=== PATIENT | female | born 1955 | race Caucasian/White ===

== ENCOUNTER 2019-02-24 07:00 | Outpatient (CLI) | payer MEDICARE, SELFPAY ==
[2019-02-24 13:30] LABS: ALT 16 U/L (14-59); AST 8 U/L (15-37); Albumin 3.8 g/dL (3.4-5.0); Alkaline Phosphatase 153 U/L (46-116); Anion Gap 8.9 mmol/L (3-11); BUN 26 mg/dL (7-18); Bilirubin, Total 0.4 mg/dL (0.2-1.0); CO2 29.1 mmol/L (21.0-32.0); CREATININE 1.02 mg/dL (0.55-1.02); Calcium 8.9 mg/dL (8.5-10.1); Calculated LDL 106 mg/dL; Chloride 102 mmol/L (98-107); Cholesterol 162 mg/dL (50-200); Estimated GFR 54.39 (mL/min/1.73m2); Glucose 94 mg/dL (70-100); HDL Cholesterol 43 mg/dL (40-60); Potassium 4.8 mmol/L (3.5-5.1); Sodium 140 mmol/L (136-145); Triglyceride 68 mg/dL (30-150)
== END 2019-02-24 07:20 ==
PROVIDERS: PCP Family Medicine; Visit Provider Family Medicine
DX: I10 Essential (primary) hypertension (principal)
CPT/HCPCS: 36415; 80053; 80061

== ENCOUNTER 2019-07-21 13:21 | Outpatient (REF) | payer MEDICARE, SELFPAY | END 2019-07-21 13:41 | LOC: LBN 13:21 | PROVIDERS: PCP Family Medicine; Visit Provider Family Medicine | DX: R31.29 Other microscopic hematuria (principal) | CPT/HCPCS: 87077; 87086; 87186 ==

== ENCOUNTER 2019-08-11 11:28 | Outpatient (CLI) | payer MEDICARE, SELFPAY | END 2019-08-11 11:48 | PROVIDERS: PCP Family Medicine; Referring Provider Family Medicine; Visit Provider Student in an Organized Health Care Education/Training Program | DX: M17.11 Unilateral primary osteoarthritis, right knee (principal) | CPT/HCPCS: 99203 ==

== ENCOUNTER 2019-10-24 01:47 | Outpatient (CLI) | payer MEDICARE, SELFPAY ==
[2019-10-24 11:02] LABS: HCT 38.8 % (36.0-46.0); HGB 12.9 g/dL (12.0-15.5); Mean Corp. HGB Concentration 33.2 g/dL (32.0-36.0); Mean Corpuscular Hemoglobin 30.8 pg (27.0-33.0); Mean Corpuscular Volume 92.6 fL (80-95); Mean Platelet Volume 9.1 fL (8.0-11.0); Platelet Count 276 x1000/uL (130-400); RBC 4.19 m/cumm (4.00-5.20)
[2019-10-24 11:39] LABS: Anion Gap 8.6 mmol/L (3-11); BUN 20 mg/dL (7-18); CO2 27.4 mmol/L (21.0-32.0); CREATININE 1.06 mg/dL (0.55-1.02); Calcium 8.7 mg/dL (8.5-10.1); Chloride 102 mmol/L (98-107); Estimated GFR 52.03 (mL/min/1.73m2); Glucose 135 mg/dL (74-106); Potassium 4.5 mmol/L (3.5-5.1); Sodium 138 mmol/L (136-145)
[2019-10-25 14:23] LABS: COVID-19 RT-PCR Result NEGATIVE (Negative)
== END 2019-10-24 02:07 ==
PROVIDERS: PCP Family Medicine; Visit Provider Student in an Organized Health Care Education/Training Program
DX: M25.561 Pain in right knee (principal); M17.11 Unilateral primary osteoarthritis, right knee; Z11.59 Encounter for screening for other viral diseases; Z01.818 Encounter for other preprocedural examination
CPT/HCPCS: 36415; 80048; 85027; U0003

== ENCOUNTER 2019-10-29 08:30 | Observation (INO) | payer MEDICARE, SELFPAY ==
[2019-10-29] VITALS (11 sets, daily range): BP systolic 102–133; BP diastolic 39–69; PULSE 52–65; RESP 11–19; TEMP 35.6–36.7; O2SAT 94–97
[2019-10-29] MEDS: Gabapentin 300 MG CAP PO ×2 (07:53→21:22)
[2019-10-29] MEDS: Celecoxib 200 MG CAP 400 MG PO (07:53)
[2019-10-29] MEDS: Lactated Ringers 1,000 ML 80 ML IV ×2 (07:54→14:12)
[2019-10-29] MEDS: Acetaminophen 500 MG TAB 1000 MG PO ×3 (07:54→19:36)
[2019-10-29] MEDS: ceFAZolin 2 GM/50 ML BAG IVPB (10:20)
--- NOTE | 2019-10-29 10:34 | HPE_ITS ---
Date of service: 10/29/19 Time of Service: 10:35 Assessment and Plan Assessment and plan (1) Primary osteoarthritis of right knee: Status: Acute Assessment and plan: Proceed with right knee replacement. History and physical performed by her primary care provider and was reviewed. She is cleared for surgery. No changes from previously documented plan in the office note. History of Present Illness History of Present Illness Chief Complaint: Right knee DJD Narrative: Rachel is a 64-year-old with known right knee arthritis. She has been seen previously in the office. Please refer to that office note for complete history and physical in regards to her right knee. She is here today for her right knee replacement. Her primary care provider, Dr. Zelaya, performed a history and physical. She has had no changes to her health. She did have her COVID-19 test and has self quarantined from the time of test till today. She denies shortness of breath, chest pain, palpitations. No other acute changes to her health. [facility] Social History Smoking/Tobacco Use Status: Former Tobacco Use Drug use: Never Current gender identity: female Meds Home Medications and Allergies Home Medications Medication Instructions Recorded Confirmed Type acyclovir 200 mg capsule 400 mg PO TID PRN #180 tab-cap 03/25/19 10/23/19 Rx carbidopa 25 mg-levodopa 100 mg 1 - 2 tab PO HS #180 tab-cap 03/26/19 10/29/19 Rx tablet Front Wheeled Walker #1 ea 08/15/19 10/15/19 Rx Front Wheeled Walker #1 ea 10/22/19 Rx Raised Toilet Seat #1 ea 10/22/19 Rx Shower Chair #1 ea 10/22/19 Rx atenolol 75 mg PO HS 10/23/19 10/29/19 History Allergies Allergy/AdvReac Type Severity Reaction Status Date / Time benzonatate AdvReac Unknown Ineffective Unverified 10/29/19 07:38 Results Last Vital Signs Temp 36.6 C 10/29/19 07:43 Pulse 54 L 10/29/19 07:43 Resp 16 10/29/19 07:43 BP 133/52 L 10/29/19 07:43 Pulse Ox 96 10/29/19 07:43
[2019-10-29] MEDS: Bupivacaine 0.25% Pres-Free 30 ML VIAL (11:15)
[2019-10-29] MEDS: Ketorolac 30 MG/ML VIAL (11:17)
[2019-10-29] MEDS: Normal Saline 20 ML VIAL (11:18)
--- NOTE | 2019-10-29 12:43 | W.PM.OP ---
Date of service: 10/29/19 Time of Service: 12:44 Operative Note Operative Note DATE OF PROCEDURE: 10/29/19 PRE-OP DIAGNOSIS: Right knee Osteoarthritis POST-OP DIAGNOSIS: same PROCEDURE: Right total Knee Replacement SURGEON: Tyshawn Bear SALES ENABLEMENT ANALYST: Jenna Nesbitt ANESTHESIA: GETA and regional ESTIMATED BLOOD LOSS: 200 PATHOLOGY: none sent TOURNIQUET TIME: 29 COMPLICATIONS: None Patient was transported to: PACU Patient's condition: stable Implants: 1. Depuy Attune Cruciate Retaining Femoral Component, Size 6 narrow 2. Depuy Attune Rotating Platform Tibial Component, Size 4 3. Depuy Attune 6 x 7 mm CR,RP Poly 4. Depuy Attune Patellar Component, Size 38 mm Indications: I have seen Rachel in clinic for symptoms of knee arthritis, confirmed with radiographic findings. Rachel has exhausted nonoperative methods and was having significant limitations in daily function and desired better function and less pain. I discussed the technical details of a knee replacement. I explained the risks of the procedure to include, but not limited to, bleeding, infection, pain, stiffness, fracture, damage to nerves and vessels, damage to muscles and tendons, loosening, need for repeat procedure, blood clot and cardiopulmonary demise. Despite these risks, Rachel elected to proceed. Findings: There is notable arthritis of the lateral compartment with complete loss of cartilage over the entire lateral femur and notable bony irregularity. 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 Procedure Description: Rachel was greeted in the preoperative holding area where the correct side was identified and marked. The consent was reviewed with the patient and signed. The history and physical was updated. All questions were answered. Preoperative mediacations were administered: Acetaminophen 1000mg, Celebrex 400mg, and Gabapentin 300mg. An adductor canal block was then administered by the anesthesia team in the PACU. Rachel was taken back to the operating room. A spinal anesthestic was then attempted but was unsuccessful. She was then converted to a general anesthetic. The patient was placed into the supine position on the operating room table. A nonsterile tourniquet was placed high onto the leg but only used for cementing. Posts were placed for positioning during the procedure. All bony prominences were well padded. Prophylactic antibiotics in the form of cefazolin were administered. 1g of Tranxemic Acid was given intravenously within 30 minutes of incision. The right leg was then prepped with Chloraprep and draped in a standard fashion with impervious stockinette and extremity drape. A second prep with Chloraprep was performed prior to placing Ioband. A timeout to confirm correct identity, side and site, procedure, allergies, anesthesia, and medical concerns was performed. With the knee in some flexion, a midline incision was made overlying the knee. Full thickness skin flaps were raised once the extensor mechanism was encountered. These were raised medially and laterally. Any bleeding was controlled with electrocautery. Once the extensor mechanism was fully exposed, a medial parapatellar arthrotomy was performed in a flexed position. All bleeding from the arthrotomy and the geniculate arteries was coagulated. A medial subperiosteal peel was performed with electrocautery to the midcoronal plane. The fat pad was removed while keeping the patellar tendon protected. The anterior distal femur synovium was removed for later visualization. The ACL and PCL were resected and the anterior horn of the lateral meniscus was transected. The knee was then flexed with the patella everted. Using a step drill, and based on preoperative templating, the femoral canal was entered. This was done with a step drill without any difficulty. The intramedullary distal femoral cut guide was inserted, set to a 5 degree valgus cut and 9mm cut thickness. There was some hypoplasia of the lateral femoral condyle and any remnant cartilage of the medial femoral condyle was removed for appropriate thickness. The distal femoral cut guide was then held in position and pinned. With the soft tissues protected, the distal cut was performed. This was passed over a few times to ensure a planar cut. I then turned attention to the tibia. The extramedullary guide was placed onto the leg. The distal aspect was slid medial to adjust for position of center of ankle and stay in line with shaft of the tibia. Approximately 3-5 degrees of posterior slope was kept in the proximal cutting guide. The center of the guide was aligned with the PCL. The stylus was used to assess cut thickness. The lateral side was set for a 4 mm cut which corresponded to an 8 mm cut of the medial side. This was then held in position and pinned into place with 2 additional pins and a cross pin for stability. The medial and lateral collateral ligaments were protected and the cut was performed. With this completed, it was assessed and noted to be of appropriate dimensions. The guide was removed. Attachments to the proximal aspect of the lateral tibia were then also resected with electrocautery including some the IT band. A spacer block was inserted and the knee was brought into extension. The 6mm spacer block provided full extension, without hyperextension and with stability of both the medial and lateral collateral ligaments was assessed. The pins from the femur and the tibia were then removed. The distal femur was then sized. The anterior stylus was placed onto the lateral ridge of the anterior femur. This indicated a size 6 narrow femur. The external rotation of the guide was adjusted to 3 degrees to match the epicondylar axis, perpendicular to [place]?s line. The 4-in-1 cutting guide was the placed. The posterior medial femur cut was evaluated and appeared of good thickness. The spacer block was inserted underneath the cutting guide and stability was confirmed in 90 degrees of flexion. An johnson wing was used to confirm appropriate position of the anterior cut to avoid notching. This cutting guide was ensured to be flush on the cut surface and then pinned into place with headed pins. While protecting the soft tissues, quad tendon, and collateral ligaments, the anterior and posterior cuts were performed with a saw. The central two pins were removed and the posterior and anterior chamfers were cut next. The notch-cutting guide was placed. This was pinned to lateralize the femoral component as much as possible while keeping it flush on the cut surface. This was then pinned into position. A reciprocating saw was used to make the small notch cut. Posterior osteophytes were removed with an osteotome from the lateral femur. A trial CR femoral component was then inserted, impacted down to the cut surfaces, and the lug holes were drilled. A provisional trial tibial component was placed and the knee was brought through range of motion. The polyethylene was trialed until there was good flexion and extension with excellent stability to the medial and lateral collaterals. The patella was tracking without thumbs. The tibial cut surface was fully exposed. The medial and lateral menisci were removed. The tibia was then sized as a 4. The tibia had been previously marked during trialing to correspond to the center of the tibial component to help with rotation. The trial was aligned to this sonya, approximately rotated to the medial 1/3rd of the tibial tubercle. The trial was pinned into place. The tibia was prepared with a reamer and a keel punch. The knee was then brought into extension and the patella was measured as 27 mm. Using the patellar clamp and cut guide, this was resected to a flat surface with at least 13mm of thickness remaining. The size 38 patella fit the best. This was oriented and then clamped into position. The lugs were drilled. The trial components were removed. The final components, except for the polyethylene were opened on the back table. The periosteal and capsular tissues, especially posteriorly, around the knee were then systematically injected with a periarticular cocktail consisting of 50cc 0.25% Marcaine, 30mg Ketorolac, 20cc of Exparal and 50cc of injectable saline. The tourniquet was then inflated to 275mmHg. The knee was thoroughly irrigated with a pulse lavage and dried. On the back table, with the implants opened, the cement was mixed. 2 batches of antibiotic laden cement were prepared with vacuum assistance. After the cement was ready it was placed on to the back side of the tibial component. A small amount was placed onto the posterior flange of the femur. Cement was manual pressurized and impregnated into the cut surface of the tibia. The tibial component was then inserted into the cut surface and impacted into position. Excess cement was removed and the component was reimpacted. Again, excess cement was removed and our attention was then turned to the femur. The femoral cut surface was once again dried and cement was manually impacted into the cut surface. The femoral component was lined with the lug holes and impacted. Excess cement was removed. It was ensured to be down against the cut surface. The trial polyethylene was then inserted and the leg was brought out into full extension for the duration of the cement curing process, approximately 15min. Cement was lastly manually impacted into the cut surface of the patella and the patellar button was clamped into position and held. During this process attention was turned to the gutters of the knee and for all interfaces for any excess cement. While the cement was hardening, the knee was irrigated with Irrisept chlorhexadine solution. It was allowed to sit in the knee for 3 minutes. After the cement had finally cured, approximately 15min, the clamp was removed from the patella and the knee was taken through range of motion. A size 7 mm polyethylene component provided the best range of motion and stability with less than 2mm gapping with medial and lateral stress and full extension without significant hyperextension. The patella was tracking with a no-thumbs technique. The trial poly was removed and once again the knee was checked for any loose, excess, or errant cement. The poly component was then inserted into position after cleaning and drying the tibial tray. The capsule was then reapproximated with a No. 1 Vicryl at multiple locations. The capsule was finally closed with a No. 2 Stratafix, barbed suture. The tourniquet was then released and the arthrotomy appeared watertight without significant bleeding. The second dosing of 1g TXA was started. Deep tissues were then reapproximated with 0 Vicryl and 2-0 Vicryl. The skin was closed with a running 3-0 Monocryl in a subcuticular fashion. This was reinforced with skin glue. A Mepilex silver dressing was applied along with a [id number] MARLO wrap. A CryoCuff was applied. Rachel was transferred to the hospital bed without difficulty an suffering no apparent complication. Rachel has a good prognosis. Physical therapy will start today and without restrictions, weight-bearing as tolerated. Aspirin 81mg BID will be used for DVT prophylaxis.
--- NOTE | 2019-10-29 12:48 | W.PM.DS.N ---
Date of service: 10/30/19 Time of Service: 07:11 DS: Diagnosis Discharge Diagnosis (1) Primary osteoarthritis of right knee: Status: Acute Discharge Plan Disposition Patient Disposition: HOME Condition: Good Discharge Details Reason For Visit: (R) KNEE TOTAL ARTHROPLASTY Admit Date/Time: 10/29/19 07:23 Admit Provider: Tyshawn Bear Attending Provider: Tyshawn Bear [facility] Hospital Course: Patient was admitted to the medical/surgical floor following the procedure. The surgery was tolerated well without any notable medical, surgical, or anesthetic complications. Mobilization began postoperatively. She was voiding spontaneously. Vitals were stable. Physical therapy worked with the patient and was cleared for discharge home. No acute medical issues. Pain was controlled on oral regimen. Home Meds and New Rx's Prescriptions: New celecoxib 200 mg capsule 200 mg PO BID PRN (Reason: pain) Qty: 60 RF: 1 aspirin 81 mg tablet,delayed release (DR/EC) 81 mg PO BID Qty: 60 RF: 0 acetaminophen 500 mg tablet 1,000 mg PO Q8H PRN (Reason: pain) Qty: 90 RF: 3 pantoprazole 40 mg tablet,delayed release (DR/EC) 40 mg PO DAILY Qty: 30 RF: 0 gabapentin 300 mg capsule 300 mg PO QHS Qty: 7 RF: 0 oxycodone 5 mg tablet 5 mg PO Q4H Qty: 18 RF: 0 Continued acyclovir 200 mg capsule 400 mg PO TID PRN (Reason: Herpes simplex) Qty: 180 RF: 4 carbidopa-levodopa 25-100 mg tablet 1 - 2 tab PO HS Qty: 180 RF: 1 (DME) Front Wheeled Walker Qty: 1 RF: 0 (DME) Raised Toilet Seat Qty: 1 RF: 0 (DME) Front Wheeled Walker Qty: 1 RF: 0 (DME) Shower Chair Qty: 1 RF: 0 atenolol 50 mg tablet 75 mg PO HS RF: 0 Discharge Instructions Additional Instructions: Dr. Bear?s Total Knee Discharge Instructions Activity: The most important activity is to walk. You should try to take short walks a few times a day. It is important that when resting you work on keeping the knee straight. Avoid putting a pillow behind the knee as this will encourage flexion. Work on range of motion exercises as provided by Physical Therapy and the preoperative booklet. - Start outpatient physical therapy within 2 weeks. - You should wear the AD hose on both legs for 2 weeks. Dressing: Keep the surgical dressing (Mepilex) in place for at least one week. If you went home on the surgical day, you should remove the MARLO wrap on the second day and then apply the DA hose. The dressing may get wet after 3 days but avoid soaking the dressing. If it gets wet, just lightly pat dry. Most patient prefer to cover with ClingWrap or Saran Wrap to keep the dressing dry. After the first week, the dressing may be removed and replaced with light gauze and tape or nothing. Medications: - You should take Tylenol and anti-inflammatory Celebrex as your primary pain control medications - You have been prescribed a stronger pain medication Oxycodone for breakthrough pain, take as needed as prescribed. - You have also been prescribed a stomach acid reduction agent Pantoprozole to help reduce stomach acid and reflux. - You have been prescribed Gabapentin to take at night for help with sleep and nerve related pain and symptoms. - You will be taking Aspirin 81mg twice a day for DVT prevention unless instructed otherwise. - If you have constipation you should take Colace or Miralax (both [id number]). It takes most people 3-4 days to have a bowel movement. Follow-up: 2 weeks. You should also call physical therapy to work on scheduling outpatient therapy sessions which can begin at 2 weeks. If you have any acute concerns or questions, please do not hesitate to contact the office at [phone]. You may contact Dr. Bear with any questions after hours through the hospital at [phone] or on his cell phone at [phone]. Referrals: [facility] [Provider Group] - 11/12/19 Tyshawn Bear MD [ [facility]] - Activity:: Activity as Tolerated Equipment/Supplies:: Walker Diet:: As Tolerated Discharge Orders Discharge Orders: Discharge Order (Routine); Ordered 10/30/19 Ordered By: Tyshawn Bear DS: Summary Status at Discharge Functional status at discharge: uses cane/walker Overall status at discharge: patient is progressing back to baseline Mental Status: mental status grossly normal Speech and Movement: speech and movement normal Mood: congruent mood Affect: normal affect Exam Narrative Exam Narrative: Dressing clean dry and intact. Able to straight leg raise. Range of motion -10-100. Sensation intact to light touch over the deep and superficial peroneal nerve and tibial nerve. Psych Mental Status: mental status grossly normal Speech and Movement: speech and movement normal Mood: congruent mood Affect: normal affect DS: Data Vitals/I&O Vitals and I&O: Vital Signs Temperature 36.6 C 10/29/19 07:43 Pulse 54 L 10/29/19 07:43 Pulse Rhythm Regular 10/29/19 07:43 Respiratory Rate 16 10/29/19 07:43 Respiratory Effort 10/29/19 07:43 Blood Pressure 133/52 L 10/29/19 07:43 Pulse Oximetry 96 10/29/19 07:43 Oxygen Delivery Method Room Air 10/29/19 07:43 Oxygen Flow Rate 0 10/29/19 07:43 Intake & Output 10/28/19 10/29/19 10/29/19 23:59 11:59 23:59 Intake Total 110 / 670 560 / 670 Output Total 200 / 200 Balance 110 / 470 360 / 470 Weight 95.7 kg Intake: IV 110 / 670 560 / 670 Output: Estimated Blood Loss 200 / 200 [facility] Medical History Acid reflux Rx calculus kidney Condyloma vulva age 21 yrs Cryo Tx Essential hypertension (Acute 03/07/13) Herpes simplex type 1 infection Pyloric ulcer associated with Helicobacter pylori (Inactive) Restless legs (Acute) Smoker (Acute) Supraventricular tachycardia (Acute) Surgical History section 1988 Dilation and curettage 1987 post SAB Family History Mother Diabetes Personal history of malignant neoplasm Pituitary Heart disease Stroke Father Alzheimers disease Heart disease Stroke Sister No problems noted. Sister No problems noted. Sister No problems noted. Sister No problems noted. Brother Personal history of malignant neoplasm Stomach Stroke Grandfather Heart disease Grandfather Heart disease Grandmother Heart disease Grandmother No problems noted. Brother No problems noted. Other Hyperlipidemia Social History Smoking/Tobacco Use Status: Former Tobacco Use Drug use: Never Current gender identity: female
--- NOTE | 2019-10-29 15:04 | IN_ITS ---
Date of service: 10/29/19 Time of Service: 16:53 PT Notes Visit Reasons: (R) KNEE TOTAL ARTHROPLASTY Physical Therapy Inpatient Initial Evaluation Date: 10/29/2019 Referring Doctor: Tyshawn Bear MD PT Orders: PT CONSULT: Status post Ortho surgery. Status post right TKA. Precautions: Fall. Standard. WBAT on the right LE. Patient Profile/Admitting Diagnosis: Rachel is a 64-year-old female with primary unilateral osteoarthritis of her right knee and is status post right total knee arthroplasty on postoperative day 0. PMHX: Restless Leg Syndrome Tobacco user Supraventricular tachycardia Essential hypertension Cervical stenosis of spinal canal GERD Hiatal Hernia Hyperlipidemia Idiopathic peripheral neuropathy Social History/Home Situation: Patient lives with her very supportive in a private home with 5 steps to enter that leads into a landing and another step up onto the main entrance. She states that her is building a ramp for her. She is independent with all aspects of ADLs without the need for assistive ambulatory device nor adaptive equipment. Equipment Owned/DME: Standard walker Subjective: Patient reports of being lightheaded but was able to tolerate today's mobility assessment. She reports that the outer side and the backside of her right knee feels stiff. She is hoping that she can go home as soon as she gets medically cleared as she has good supports at home. Objective: General Observation: MARLO wraps on her right knee. TEDS on left leg. IV in the right UE. Alicea catheter in place. Mental Status: Alert and oriented x4 Pain: 1/10 pain on the backside of the right knee ROM: Right Upper Extremity: Shoulder Flexion WFL. Shoulder abduction WFL. Elbow flexion WFL. Wrist flexion WFL. Opening and closing of hand WFL. Left Upper Extremity: Shoulder Flexion WFL. Shoulder abduction WFL. Elbow flexion WFL. Wrist flexion WFL. Opening and closing of hand WFL. Right Lower Extremity: Hip flexion WFL. Hip abduction WFL. Knee flexion allows up to 100 degrees. Knee extension -10 degrees. Ankle dorsiflexion WFL. Ankle plantarflexion WFL. Left Lower Extremity: Hip flexion WFL. Hip abduction WFL. Knee flexion WFL. Ankle dorsiflexion WFL. Ankle plantarflexion WFL. Strength: Right Upper Extremity: Shoulder flexors 5/5. Shoulder abductors 5/5. Elbow flexors 5/5. Elbow extensors 5/5. Nuclear Medicine Pet Ct Technologist strong. Left Upper Extremity: Shoulder flexors 5/5. Shoulder abductors 5/5. Elbow flexors 5/5. Elbow extensors 5/5. Nuclear Medicine Pet Ct Technologist strong. Right Lower Extremity: Hip flexors 5/5. Hip abductors 5/5. Knee flexors 3-/5. Knee extensors 3-/5. Ankle dorsiflexors 5/5. Ankle plantarflexors 5/5. Left Lower Extremity:Hip flexors 5/5. Hip abductors 5/5. Knee flexors 5/5. Knee extensors 5/5. Ankle dorsiflexors 5/5. Ankle plantarflexors 5/5. Sensation: Intact as to pain and pressure on bilateral lower extremities. Bed Mobility/Transfers: Sit to stand contact-guard assist requiring minimal verbal cueing for hand placement, requires use of front-wheeled walker Stand to sit contact-guard assist requiring minimal verbal cueing for hand placement, requires use of front-wheeled walker Bed to chair contact-guard assist requiring minimal verbal cueing for hand placement, requires use of front-wheeled walker Chair to bed contact-guard assist requiring minimal verbal cueing for hand placement, requires use of front-wheeled walker Gait: Patient tolerated level surface ambulation of 120 feet using a front wheeled walker with WBAT on the right LE with contact-guard assist and wheelchair follow. Decreased anabela. Step to gait pattern. Reported some stiffness on the side and the posterior aspect of right knee which subsided towards the end of ambulation activity. Balance: Static Sitting: Normal Dynamic Sitting: Normal Static Standing: Fair Dynamic Standing: Fair Special Tests: Mobility Limitations Standardized Measure [facility]-P[facility] 6 clicks Basic Mobility Inpatient Short Form: Raw Score: 18 CMS Score: 47% deficit Informed Consent/Education: Patient instructed in purpose of PT consult and plan of care. Assessment: Rachel demonstrates need for an assistive ambulatory device for all mobility ADL performance, impairment in balance, difficulty with walking, and unsteadiness of gait resulting from postoperative status. Rachel is a 64-year-old female with primary unilateral osteoarthritis of her right knee and is status post right total knee arthroplasty on postoperative day 0. She has peripheral neuropathy and cervical spinal stenosis which may interfere with mobility ADL retraining. Patient presents with clinical signs and symptoms consistent with current/admitting diagnoses that have resulted to mobility limitations, gait instability, generalized weakness, and impairment of motor control as demonstrated by the following impairment level findings: 1. Decreased strength to right knee major muscle groups 2. Impaired standing balance 3. Impaired activity tolerance 4. Limitation of joint range of motion in right knee Impairments are contributing to the following functional limitations: 1. Dependent bed mobility skills 2. Increased dependence with transfers 3. Inability to safely ambulate without assistive device and physical assistance 4. Increase completion time for mobility ADL performance 5. Increased fall risk 6. Inability to negotiate steps alone safely Patient is assessed as a 26832 moderate complexity based on the following: History: 64-year-old female with impairment level findings, functional limitations, and past medical history as listed above Examination: Demonstrable impairment in strength, balance, and range of motion with underlying impairments and functional limitations as documented above Presentation:Evolving Decision Makin moderate complexity Goals: Goals X 3 days 1. Supine-Sit independent 2. Sit-Supine independent 3. Sit-Stand independent 4. Stand-Sit independent 5. Bed-Chair independent 6. Chair-Bed independent 7. Independent gait on level surface with use of least restrictive device for at least 300 feet without report of pain nor dyspnea 8. Independent stair negotiation while holding onto bilateral rails for at least 10 steps without report of pain nor dyspnea 9. Independent with home exercise program 10. Good static and dynamic standing balance/tolerance Plan of Care/Treatment Plan: 1-2x/day, 7 days/week x 1 week. Initiate Physical Therapy intervention for strengthening, bed mobility, transfers, gait, stairs, balance training, use of assistive device. PT Intervention: Session for today consisted of initial physical therapy evaluation as well as education and training on mobility ADL performance using front wheeled walker. DISCHARGE RECOMMENDATIONS: Home when medically cleared. Needs a front wheeled walker in order to maximize independence at home. May benefit from skilled physical therapy services according to orthopedic surgeon's timeline recommendations. Patient will be educated and trained on home exercise program per TKA exercise protocol in preparation for outpatient physical therapy services. TREATMENT CODE/TIME: 9716 2 x 25 minutes, 70257 x 18 minutes beginning at 15:04 PM. Thank you very much for this referral. Shari Rodriguez PT, DPT, CLT [facility] [place], [place]
[2019-10-29] MEDS: ceFAZolin 1 GM/50 ML BAG IVPB (18:01)
[2019-10-29] MEDS: Aspirin E.C. 81 MG TABEC PO (19:35)
[2019-10-29] MEDS: oxyCODONE 5 MG TAB PO (19:36)
[2019-10-29] MEDS: Celecoxib 200 MG CAP PO (19:36)
[2019-10-29] MEDS: Atenolol 25 MG TAB 75 MG PO (21:22)
[2019-10-29] MEDS: Carbidopa 25/Levodopa 100 TAB PO (21:22)
[2019-10-30] MEDS: ceFAZolin 1 GM/50 ML BAG IVPB (01:51)
[2019-10-30 03:31] VITALS: BP 110/66; PULSE 60; RESP 19; TEMP 36.6; O2SAT 95
[2019-10-30] MEDS: Lactated Ringers 1,000 ML 80 ML IV (05:35)
[2019-10-30] MEDS: Acetaminophen 500 MG TAB 1000 MG PO (07:49)
[2019-10-30] MEDS: Aspirin E.C. 81 MG TABEC PO (07:49)
[2019-10-30] MEDS: Pantoprazole 40 MG TABCR PO (07:50)
[2019-10-30] MEDS: Celecoxib 200 MG CAP PO (07:50)
[2019-10-30 08:30] VITALS: BP 116/67; PULSE 57; RESP 15; TEMP 36.1; O2SAT 96
--- NOTE | 2019-10-30 11:14 | PDOC.CMPRO ---
Care Management Progress Note Request from for FWW coordination. SHAINA provided FWW to Rachel, who was preparing for discharge.
--- NOTE | 2019-10-30 11:55 | PT.INDS ---
Date of service: 10/30/19 Time of Service: 09:00 PT Notes Visit Reasons: (R) KNEE TOTAL ARTHROPLASTY Inpatient Physical Therapy Discharge Summary Dates: 10/30/2019 Dates of Service: 10/29/2019 and 10/30/2019 Referring Doctor: Tyshawn Bear MD PT Orders: PT CONSULT: Status post Ortho surgery. Status post right TKA. Precautions: Fall. Standard. WBAT on the right LE. Patient Profile/Admitting Diagnosis: Rachel is a 64-year-old female with primary unilateral osteoarthritis of her right knee and is status post right total knee arthroplasty on postoperative day 1. PMHX: Restless Leg Syndrome Tobacco user Supraventricular tachycardia Essential hypertension Cervical stenosis of spinal canal GERD Hiatal Hernia Hyperlipidemia Idiopathic peripheral neuropathy Social History/Home Situation: Patient lives with her very supportive in a private home with 5 steps to enter that leads into a landing and another step up onto the main entrance. She states that her is building a ramp for her. She is independent with all aspects of ADLs without the need for assistive ambulatory device nor adaptive equipment. Equipment Owned/DME: Standard walker Subjective: Patient looks forward to going home today. She received a front wheeled walker fitted to her. Objective: General Observation: MARLO wraps on her right knee. TEDS on left leg. Mental Status: Alert and oriented x4 Pain: 1/10 pain on the backside of the right knee ROM: Right Upper Extremity: Shoulder Flexion WFL. Shoulder abduction WFL. Elbow flexion WFL. Wrist flexion WFL. Opening and closing of hand WFL. Left Upper Extremity: Shoulder Flexion WFL. Shoulder abduction WFL. Elbow flexion WFL. Wrist flexion WFL. Opening and closing of hand WFL. Right Lower Extremity: Hip flexion WFL. Hip abduction WFL. Knee flexion allows up to 100 degrees. Knee extension -10 degrees. Ankle dorsiflexion WFL. Ankle plantarflexion WFL. Left Lower Extremity: Hip flexion WFL. Hip abduction WFL. Knee flexion WFL. Ankle dorsiflexion WFL. Ankle plantarflexion WFL. Strength: Right Upper Extremity: Shoulder flexors 5/5. Shoulder abductors 5/5. Elbow flexors 5/5. Elbow extensors 5/5. Supervisor Throwing Department strong. Left Upper Extremity: Shoulder flexors 5/5. Shoulder abductors 5/5. Elbow flexors 5/5. Elbow extensors 5/5. Supervisor Throwing Department strong. Right Lower Extremity: Hip flexors 5/5. Hip abductors 5/5. Knee flexors 3-/5. Knee extensors 3-/5. Ankle dorsiflexors 5/5. Ankle plantarflexors 5/5. Left Lower Extremity:Hip flexors 5/5. Hip abductors 5/5. Knee flexors 5/5. Knee extensors 5/5. Ankle dorsiflexors 5/5. Ankle plantarflexors 5/5. Sensation: Intact as to pain and pressure on bilateral lower extremities. Bed Mobility/Transfers: Sit to stand independent requires use of front-wheeled walker Stand to sit independent requires use of front-wheeled walker Bed to chair independent requires use of front-wheeled walker Chair to bed independent requires use of front-wheeled walker Gait: Patient tolerated level surface ambulation of 260 feet using a front wheeled walker with WBAT on the right LE with supervision assist. Increasing anabela. Step to gait pattern. Reported some stiffness on the side and the posterior aspect of right knee which subsided towards the end of ambulation activity. Patient also tolerated up-and-down twelve 4 inch steps and eight 4 inch steps holding onto one rail with step to gait pattern requiring only supervision. Balance: Static Sitting: Normal Dynamic Sitting: Normal Static Standing: Fair Dynamic Standing: Fair Assessment: Rachel demonstrates need for an assistive ambulatory device for all mobility ADL performance, impairment in balance, difficulty with walking, and unsteadiness of gait resulting from postoperative status. Rachel is a 64-year-old female with primary unilateral osteoarthritis of her right knee and is status post right total knee arthroplasty on postoperative day 1. She has peripheral neuropathy and cervical spinal stenosis which may interfere with mobility ADL retraining. Patient continues to present with clinical signs and symptoms consistent with current/admitting diagnoses that have resulted to mobility limitations, gait instability, generalized weakness, and impairment of motor control as demonstrated by the following impairment level findings: 1. Decreased strength to right knee major muscle groups 2. Impaired standing balance 3. Impaired activity tolerance 4. Limitation of joint range of motion in right knee Impairments are are continuing to contribute to the following functional limitations: 1. Inability to safely ambulate without assistive device and physical assistance 2. Increase completion time for mobility ADL performance 3. Increased fall risk Goals: Goals X 3 days 1. Supine-Sit independent MET 2. Sit-Supine independent MET 3. Sit-Stand independent MET 4. Stand-Sit independent MET 5. Bed-Chair independent MET 6. Chair-Bed independent MET 7. Independent gait on level surface with use of least restrictive device for at least 300 feet without report of pain nor dyspnea NOT MET 8. Independent stair negotiation while holding onto bilateral rails for at least 10 steps without report of pain nor dyspnea NOT MET 9. Independent with home exercise program MET 10. Good static and dynamic standing balance/tolerance NOT MET PT Intervention: Session for today consisted of continued education and training on exercises and on mobility ADL performance using front wheeled walker. DISCHARGE RECOMMENDATIONS: Home when medically cleared. Needs a front wheeled walker in order to maximize independence at home. May benefit from skilled physical therapy services according to orthopedic surgeon's timeline recommendations. Patient will be educated and trained on home exercise program per TKA exercise protocol in preparation for outpatient physical therapy services. TREATMENT CODE/TIME: 66179 x 15 minutes, 40191 x 13 minutes beginning at 9:00 AM. Thank you very much for this referral. Shari Rodriguez PT, DPT, CLT [facility] [place], [place]
== END 2019-10-30 10:45 | disposition home or self-care (01) ==
LOC: PDS 12:50 → MS 23:59 → PDS 10-30 11:32
PROVIDERS: Admitting Provider Student in an Organized Health Care Education/Training Program; PCP Family Medicine; Visit Provider Student in an Organized Health Care Education/Training Program
PROC: 0SRC0J9 Replacement of Right Knee Joint with Synthetic Substitute, Cemented, Open Approach (ICD-10-PCS; CPT 27447; principal; 2019-10-29 10:30)
DX: M17.11 Unilateral primary osteoarthritis, right knee (principal); M25.561 Pain in right knee; Z96.651 Presence of right artificial knee joint; G89.18 Other acute postprocedural pain; I10 Essential (primary) hypertension; K21.9 Gastro-esophageal reflux disease without esophagitis; F17.210 Nicotine dependence, cigarettes, uncomplicated
CPT/HCPCS: 27447; C1776; 76942; 97110; 97162; 97530; NC; G0378; J0690; J1100; J1885; J2001; J2250; J2405; J2704; J3010

== ENCOUNTER 2019-11-17 08:04 | Outpatient (CLI) | payer MEDICARE, SELFPAY ==
--- NOTE | 2019-11-17 07:45 | DI.RAD_ITS ---
EXAM: XR STANDING ALIGNMENT CLINICAL HISTORY: 1st post op R TKA. TECHNIQUE: 2D digital imaging was performed. COMPARISON: CR,DX XR KNEE STANDING ALIGNMENT AP LAT [place] SKYLINE RIGHT from 05/06/2019 FINDINGS: BONES: There is a right total knee replacement which appears in good position. Left knee is well meghana ntained. There is a lucency seen in the medial aspect the left talar dome. This may represent an os teochondral lesion. No bony destructive lesion is seen. JOINTS: No dislocation present. Degenerative changes are seen in the hips bilaterally. SOFT TISSUE: Normal. IMPRESSION: Right TKR. DATA REPOSITORY: RADIATION DOSE DELIVERED:
== END 2019-11-17 08:24 ==
PROVIDERS: PCP Family Medicine; Referring Provider Family Medicine; Visit Provider Student in an Organized Health Care Education/Training Program
DX: Z96.651 Presence of right artificial knee joint (principal); Z47.1 Aftercare following joint replacement surgery; M16.0 Bilateral primary osteoarthritis of hip
CPT/HCPCS: 73560; 77073

== ENCOUNTER → 2019-12-15 08:15 | Outpatient (BNVA) | payer MEDICARE, SELFPAY | PROVIDERS: PCP Family Medicine; Referring Provider Family Medicine; Visit Provider Student in an Organized Health Care Education/Training Program | DX: Z96.651 Presence of right artificial knee joint (principal); Z47.1 Aftercare following joint replacement surgery; I10 Essential (primary) hypertension ==

== ENCOUNTER → 2020-01-26 09:14 | Outpatient (BNVA) | payer MEDICARE, SELFPAY | PROVIDERS: PCP Family Medicine; Referring Provider Family Medicine; Visit Provider Student in an Organized Health Care Education/Training Program | DX: Z47.1 Aftercare following joint replacement surgery (principal); Z96.651 Presence of right artificial knee joint; I10 Essential (primary) hypertension ==

== ENCOUNTER 2020-05-12 00:52 | Outpatient (CLI) | payer MEDICARE, SELFPAY ==
--- NOTE | 2020-05-12 10:23 | DI.US_ITS ---
APPROVED REPORT EXAM: Comprehensive 2D, Doppler, and color-flow Echocardiogram Groundman: Maria Del Carmen Patton RDCS (AE) Indications: Lower ext swelling, Hypertension Other Information Study Quality: Fair Conclusion Normal left ventricular wall thickness and chamber size. Estimated ejection fraction is 60%. There are no segmental wall motion abnormalities Normal right ventricular size and systolic function The left atrium is mildly dilated. The right atrium is normal in size The aortic valve is trileaflet without stenosis or regurgitation Mildly thickened mitral leaflets. There is mild to moderate mitral regurgitation Tricuspid valve is structurally normal with trace regurgitation. Estimated right ventricular systoli c pressure is normal at 30 mmHg The pulmonic valve is structurally normal Wall motion Left Ventricle The left ventricle is normal size. The left ventricular systolic function is normal. The left ventric ular ejection fraction is within the normal range. There is normal left ventricular wall thickness. T here is normal LV segmental wall motion. There is no ventricular septal defect visualized. LVEF is 60 %. Right Ventricle The right ventricle is normal size. The right ventricular systolic function is normal. The RVSP is 30 .3 mmHg. Atria Left atrium is mildly dilated. The right atrium size is normal. The interatrial septum is intact with no evidence for an atrial septal defect. Aortic Valve The aortic valve is normal in structure. Aortic valve is trileaflet. There is no aortic valvular sten osis. No aortic regurgitation is present. Mitral Valve Mildly thickened mitral leaflets No evidence of mitral valve stenosis. Mild to moderate mitral regurg itation. Tricuspid Valve The tricuspid valve is normal in structure. There is no tricuspid valve stenosis. Trace tricuspid reg urgitation. Pulmonic Valve The pulmonary valve is normal in structure. There is no pulmonic valvular stenosis. There is no pulmo teri valvular regurgitation. Great Vessels The aortic root is normal in size. The ascending aorta is normal in size. Aortic arch is normal in ca liber. IVC is normal in size and collapses >50% with inspiration. Pericardium There is no pericardial effusion. 2D Dimensions IVSD d PLAX 1.01 cm F: 0.6-1.0 LV Vol A2C d MOD 91.8 mL LVPW d PLAX 1.05 cm F: 0.6 - 1.0 LV Vol A4C d MOD 92.6 mL LVID d PLAX 4.83 cm F: 3.8 - 5.2 LA vol/ BSA A2C s A-L 32.1 mL/m2 LVDs 3.35 cm F: 2.2 - 3.5 LA vol/ BSA A4C s A-L 34.2 mL/m2 Ao Root d 2.76 cm F: 2.7 - 3.3 LA Vol/ BSA Biplane s A-L 34.0 mL/m2 RA Area A4C 14.38 cm2 LA Area A4C s MOD 21.79 cm2 RA Vol/ BSA A4C s A-L 15.6 mL/m2 LA Area A2C s MOD 21.66 cm2 Ao Asc Diam d 2.93 cm F: 2.3 - 3.1 LV EF A4C MOD 60.2 % LV EF Teichholz 57.0 % LV EF A2C MOD 60.1 % LVEF (Arboleda's) 60.33 % F: 54 - 74 LV EF Biplane MOD 60.3 % LV Volume 70.36 mL F: 46 - 106 SV 57.20 mL LV Volume Index 34.15 mL/m2 F: 29 - 61 SV Index 27.69 mL/m2 LV Vol Biplane MOD 94.8 mL FS 29.90 % M-Mode TAPSE 2.82 cm (M/F) >1.7 LV Diastology MV E' medial 0.087 (>0.07 m/s) E/A Ratio 1.1 LV E/e MED 11.75 (<14) MV E Vmax 1.02 (0.4-1.3 m/s) MV E' lateral 0.079 (>0.1 m/s) MV A Vmax 0.90 (0.4-1.3 m/s) LV E/e LAT 12.85 (<14) MV E/A Ratio 1.13 MV E/E' medial 11.80 MV E/E' lateral 12.88 Aortic Valve LVOT Vmax 0.81 m/s LVOT Mean Savage. 0.53 m/s LVOT Peak Grad 2.6 mmHg LVOT Mean Grad 1.3 mmHg LVOT VTI 0.234 m AoV Vmax 1.36 m/s Velocity Ratio 0.59 AoV Mean Savage. 0.88 m/s AoV Peak Grad 7.4 mmHg AoV Mean Grad 3.6 mmHg AoV VTI 0.319 m Mitral Valve MV DT 203 (160-240 msec) MR Vmax 4.43 m/s MV PHT 59 msec MR VTI 1.816 m MV Area PHT 3.74 cm2 MR Peak Grad 78.6 mmHg MV VTI 0.410 m MR Mean Grad 66.1 mmHg MV VTI Annulus 0.433 m MR PISA Radius 0.40 cm MR EROA 0.08 cm2 MR Aliasing Velocity 0.35 m/s MR PISA 0.98 cm2 Pulmonary Valve PV Vmax 0.84 (0.5-1.5 m/s) RVOT Peak Gr. 2.72 mmHg PV Peak Grad 2.9 mmHg RVOT Mean Gr. 1.25 mmHg PV Mean Grad 1.6 mmHg RVOT VTI 0.156 m PV VTI 0.251 m RVOT Vmax 0.82 m/s Tricuspid Valve TR Peak Grad 27.2 mmHg TR Vmax 2.61 m/s RA Pressure 3.00 mmHg RVSP (TR) 30.3 mmHg
== END 2020-05-12 01:12 ==
PROVIDERS: PCP Nurse Practitioner Family; Visit Provider Nurse Practitioner Family
DX: I10 Essential (primary) hypertension (principal); R60.0 Localized edema; I34.0 Nonrheumatic mitral (valve) insufficiency
CPT/HCPCS: 93306

== ENCOUNTER 2020-11-15 11:33 | Outpatient (CLI) | payer MEDICARE, SELFPAY ==
--- NOTE | 2020-11-15 09:30 | DI.RAD_ITS ---
Exam(s) XR KNEE RT 2V AP,LAT EXAM: XR KNEE RT 2V AP,LAT CLINICAL HISTORY: ANNUAL F/U. TECHNIQUE: 2D digital imaging was performed. COMPARISON: CR,DX XR KNEE STANDING ALIGNMENT AP LAT [place] SKYLINE RIGHT from 05/06/2019 CR XR STANDING ALIGNMENT from 11/17/2019 CR XR KNEE RT 1V from 11/17/2019 FINDINGS: There are stable postsurgical changes of a right total knee replacement. There is no evidence of bautista dware failure. The bones are intact and normally mineralized. No significant joint effusion. Soft tissues are unremarkable. IMPRESSION: Stable right TKA. DATA REPOSITORY: RADIATION DOSE DELIVERED:
== END 2020-11-15 11:34 | disposition home or self-care (01) ==
LOC: DIORS 11:34
PROVIDERS: PCP Nurse Practitioner Family; Referring Provider Nurse Practitioner Family; Visit Provider Student in an Organized Health Care Education/Training Program
DX: Z47.1 Aftercare following joint replacement surgery (principal); Z96.651 Presence of right artificial knee joint; M70.51 Other bursitis of knee, right knee
CPT/HCPCS: 99213; 73560

== ENCOUNTER → 2021-02-02 08:11 | Outpatient (BNVA) | payer MEDICARE, SELFPAY | PROVIDERS: PCP Family Medicine; Referring Provider Nurse Practitioner Family; Visit Provider Psychiatry & Neurology Neurology | DX: G60.9 Hereditary and idiopathic neuropathy, unspecified (principal); M48.02 Spinal stenosis, cervical region; R29.2 Abnormal reflex; G25.81 Restless legs syndrome | CPT/HCPCS: 99215; G2212 ==

== ENCOUNTER 2022-02-27 09:14 | Outpatient (CLI) | payer MEDICARE, SELFPAY ==
--- NOTE | 2022-02-27 08:15 | DI.RAD_ITS ---
Exam(s) XR KNEE LT 3V AP,LAT,AURY EXAM: XR KNEE LT 3V AP,LAT,AURY CLINICAL HISTORY: pain. TECHNIQUE: 2D digital imaging was performed. Three views. COMPARISON: CR XR KNEE RT 2V AP,LAT from 02/27/2022 FINDINGS: BONES: No acute fracture is present. No bony destructive lesion is seen. Enthesophyte at quadriceps insertion on the patella. JOINTS: Mild periarticular spurring throughout. Joint spaces maintained. The knee is normally align ed. No joint effusion is seen. SOFT TISSUE: Normal. IMPRESSION: Mild degenerative changes. DATA REPOSITORY: RADIATION DOSE DELIVERED:
--- NOTE | 2022-02-27 08:15 | DI.RAD_ITS ---
Exam(s) XR KNEE RT 2V AP,LAT EXAM: XR KNEE RT 2V AP,LAT INDICATION: pain s/p rt TKA. COMPARISON: CR XR KNEE RT 2V AP,LAT from 11/15/2020 TECHNIQUE: 2D digital imaging was performed. Two views. FINDINGS: There has been no change in the total knee prosthesis or appearance of the surrounding bone. DATA REPOSITORY: RADIATION DOSE DELIVERED:
== END 2022-02-27 09:15 | disposition home or self-care (01) ==
LOC: DIORS 09:15
PROVIDERS: PCP Nurse Practitioner Family; Referring Provider Nurse Practitioner Family; Visit Provider Physician Assistant Surgical
DX: M25.562 Pain in left knee (principal); Z96.651 Presence of right artificial knee joint; M48.02 Spinal stenosis, cervical region; M70.51 Other bursitis of knee, right knee
CPT/HCPCS: 73562; 99214; 73560

== ENCOUNTER → 2022-03-21 01:56 | Outpatient (CLI) | payer MEDICARE, SELFPAY ==
--- NOTE | 2022-03-21 07:15 | DI.MRI_ITS ---
Exam(s) MR CERVICAL SPINE WO EXAM: MR CERVICAL SPINE WO CLINICAL HISTORY: neck pain, cervical stenosis, m48.02 TECHNIQUE: Multiplanar multisequence MRI of the cervical spine was performed without intravenous con trast. COMPARISON: MR MRI - CERVICAL SPINE WO CONT from 12/21/2015 FINDINGS: BONES: Vertebral body heights are maintained. Intervertebral disc spaces are normal. Alignment is nor mal. Bone marrow signal intensity is within normal limits. CERVICAL CORD: Craniovertebral junction is unremarkable. The cervical cord is normal size and signal intensity. SOFT TISSUES: Unremarkable. C2-3: No disc herniation or bulge is identified. No significant central spinal canal or neural forami nal stenosis. C3-4: No disc herniation or bulge is identified. No significant central spinal canal or neural forami nal stenosis C4-5: There is prominence of the osteophyte disc complex causing mild narrowing of the central spinal canal. Uncovertebral joint hypertrophy is seen bilaterally, right greater than left resulting in bi lateral neural foraminal stenosis. C5-6: There is prominence of the osteophyte disc complex causing mild central spinal canal stenosis. Uncovertebral joint hypertrophy is present causing moderately severe bilateral neural foraminal sten osis. C6-7: There is mild prominence of the osteophyte disc complex. Mild degenerative changes of the left uncovertebral joint are present. This results in mild narrowing of the left neural foramen. No sig nificant central spinal canal or right neural foraminal stenosis. C7-T1: No disc herniation or bulge is identified. No significant central spinal canal or neural dejon inal stenosis IMPRESSION: Multilevel degenerative changes in the cervical spine resulting in central spinal canal neural forami nal stenosis as described above. The findings are most marked at C4-5, C5-6 and C6-C7. DATA REPOSITORY:
== END ==
PROVIDERS: PCP Nurse Practitioner Family; Visit Provider Student in an Organized Health Care Education/Training Program
DX: M47.812 Spondylosis without myelopathy or radiculopathy, cervical region (principal)
CPT/HCPCS: 72141

== ENCOUNTER → 2022-08-28 14:39 | Outpatient (BNVA) | payer MEDICARE, SELFPAY | PROVIDERS: PCP Nurse Practitioner Family; Referring Provider Nurse Practitioner Family; Visit Provider Student in an Organized Health Care Education/Training Program | DX: M65.351 Trigger finger, right little finger (principal) | CPT/HCPCS: 99213 ==

== ENCOUNTER 2022-09-26 06:14 | Day surgery (SDC) | payer MEDICARE, SELFPAY ==
[2022-09-26 06:15] VITALS: BP 120/62; PULSE 58; RESP 18; TEMP 36.6; O2SAT 96
--- NOTE | 2022-09-26 07:09 | PDOC.DSDIS_ITS ---
Date of service: 09/26/22 Time of Service: 07:10 Discharge Plan Disposition Patient Disposition: Home Condition: Good Discharge Details Reason For Visit: Right little finger trigger finger Attending Provider: Tyshawn Bear Primary Care Provider: Yaron Chung Home Meds and New Rx's Prescriptions: Continued ketoconazole 2 % cream 1 applic topical BID Qty: 30 0RF Rx Instructions: Apply to affected areas of feet BID. No refills. acyclovir 200 mg capsule 400 mg PO TID PRN (Reason: Herpes simplex) Qty: 180 4RF atenolol 50 mg tablet 75 mg PO HS Qty: 135 4RF Rx Instructions: take one and a half tablet daily carbidopa-levodopa 25-100 mg tablet 1 - 2 tab PO HS Qty: 180 1RF Rx Instructions: NOT SENT Discharge Instructions Stand Alone Forms: Chema Allan Finger Release Referrals: Tyshawn Bear MD [ [facility] STAFF PHYSICIAN] - Activity:: Elevate Remove Dressings/Wound Care:: 48 hours Shower/Bathe:: 48 hours Diet:: As Tolerated Discharge Orders Discharge Orders: Discharge Order (Routine); Ordered 09/26/22 Ordered By: Angela Brooks
[2022-09-26] MEDS: Sodium Bicarbonate 50 MEQ/50 ML VIAL (07:34)
[2022-09-26] MEDS: Lidocaine 1% Pres-Free W/EPI 1/200,000 10 ML VIAL (07:34)
[2022-09-26 07:50] VITALS: BP 148/78; PULSE 59; RESP 18; TEMP 36.3; O2SAT 95
--- NOTE | 2022-09-26 15:57 | W.PM.OP ---
Date of service: 09/26/22 Time of Service: 07:45 Operative Note Operative Note DATE OF PROCEDURE: 09/26/22 PRE-OP DIAGNOSIS: Right Little Finger Trigger Finger POST-OP DIAGNOSIS: same PROCEDURE: Trigger Finger Release - Right Little Finger SURGEON: Tyshawn Bear ANESTHESIA TYPE: Local By Surgeon Refer to Anesthesia Record PATHOLOGY: none sent COMPLICATIONS: None Patient was transported to: same day Patient's condition: stable Indications: I have seen Rachel in clinic for symptoms of a trigger finger. The catching, clicking, locking, and pain limited function. The diagnosis of trigger finger was evident. The symptoms had not responded to conservative measures. I discussed trigger finger release with the patient. I reviewed the risks of the procedure to include, but not limited to, bleeding, infection, pain, stiffness, incomplete release, damage to nerves or vessels, continued catching, recurrence. Despite these risks, the patient elected to proceed. Findings: There was a tightened A1 maureen which was released. The flexor tendons were inspected and the patient was able to move the finger without any catching, clicking, or locking. Procedure Description: Rachel was greeted in the preoperative holding area where the correct side was identified and marked. The consent was reviewed with the patient and signed. All questions were answered. Rachel was taken back to the operating room. The patient was placed into the supine position on the operating room table with the right arm on an arm board. All bony prominences were well padded. No prophylactic antibiotics were administered since this was a clean, elective hand surgical case. The right arm was then prepped with Chloraprep and draped in a standard fashion with stockinette and extremity drape. A timeout to confirm correct identity, side and site, procedure, allergies, anesthesia, and medical concerns was performed. The surgical site was marked as a longitudinal incision directly over the A1 maureen of the involved digit. This was confirmed with palpation during finger flexion. This area, overlying the metacarpal head, was then anesthetized with 1% Lidocaine. The patient tolerated this well and once the anesthetic had setup, the procedure began. A longitudinal incision was made through skin only, approximately 1cm. The deep tissues were dissected bluntly. Once the A1 maureen and flexor tendons were identified the soft tissue including neurovascular structures were retracted medially and laterally. There were no crossing structures over the A1 maureen. The proximal edge of the maureen was identified and the maureen was incised with tenotomy scissors. There was a release of the tendons once this was fully released. The tendons were then removed from the wound and inspected. Excess synovium was resected. The tendons were then returned and the patient was asked to move the finger into deep flexion and back to extension. There was no recreation of the pre-operative symptoms. The hand was then once more inspected for any A0 maureen or area of possible constriction. The wound was then irrigated and the skin was closed with a 4-0 Nylon. This was dressed with gauze and a Conform dressing. The patient tolerated the procedure well and was returned to the Same Day Surgery area in a stable condition suffering no known complication.
== END 2022-09-26 08:07 | disposition home or self-care (01) ==
PROVIDERS: PCP Nurse Practitioner Family; Visit Provider Student in an Organized Health Care Education/Training Program
PROC: (CPT 26055; principal; 2022-09-26 07:30)
DX: M65.351 Trigger finger, right little finger (principal)
CPT/HCPCS: 26055

== ENCOUNTER → 2022-10-05 07:55 | Outpatient (BNVA) | payer MEDICARE, SELFPAY | PROVIDERS: PCP Nurse Practitioner Family; Referring Provider Nurse Practitioner Family | DX: Z47.89 Encounter for other orthopedic aftercare (principal); M79.641 Pain in right hand ==

== ENCOUNTER → 2023-08-14 08:54 | Outpatient (BNVA) | payer MEDICARE, SELFPAY | PROVIDERS: PCP Nurse Practitioner Family; Referring Provider Nurse Practitioner Family; Visit Provider Podiatrist | DX: G60.9 Hereditary and idiopathic neuropathy, unspecified (principal); E53.8 Deficiency of other specified B group vitamins; G62.9 Polyneuropathy, unspecified; L60.3 Nail dystrophy; B35.1 Tinea unguium; L84 Corns and callosities; I87.2 Venous insufficiency (chronic) (peripheral) | CPT/HCPCS: 11056; 11721 ==

== ENCOUNTER 2023-10-16 15:35 | Outpatient (CLI) | payer MEDICARE, SELFPAY ==
--- NOTE | 2023-10-16 09:43 | DI.RAD_ITS ---
Exam(s) XR SHOULDER RT COMPLETE 2+V EXAM: XR SHOULDER RT COMPLETE 2+V CLINICAL HISTORY: evaluate right shoulder. TECHNIQUE: 2D digital imaging was performed of the right shoulder. Three images were obtained. Gra mami and axillary views were obtained. COMPARISON: No exams were available for comparison FINDINGS: BONES: No acute fracture is present. No bony destructive lesion is seen. JOINTS: No dislocation present. There are mild degenerative changes seen at the glenohumeral joint. The acromioclavicular joint is well maintained. There is a laterally downward sloping acromion. Thi s may compromise the rotator cuff. SOFT TISSUE: The visualized lungs are clear. IMPRESSION: Degenerative changes of the right shoulder as described above. DATA REPOSITORY: RADIATION DOSE DELIVERED:
== END 2023-10-16 15:36 | disposition home or self-care (01) ==
LOC: DIORS 15:38
PROVIDERS: PCP Nurse Practitioner Family; Visit Provider Student in an Organized Health Care Education/Training Program
DX: M75.21 Bicipital tendinitis, right shoulder; M48.02 Spinal stenosis, cervical region; G60.9 Hereditary and idiopathic neuropathy, unspecified
CPT/HCPCS: 99213; 73030

== ENCOUNTER → 2023-12-26 13:15 | Outpatient (BNVA) | payer MEDICARE, SELFPAY | PROVIDERS: PCP Family Medicine; Referring Provider Family Medicine; Visit Provider Podiatrist | DX: L84 Corns and callosities (principal); G60.9 Hereditary and idiopathic neuropathy, unspecified; E53.8 Deficiency of other specified B group vitamins; G62.9 Polyneuropathy, unspecified; L60.3 Nail dystrophy; B35.1 Tinea unguium; I87.2 Venous insufficiency (chronic) (peripheral); M79.671 Pain in right foot; M79.672 Pain in left foot | CPT/HCPCS: 11055; 11056 ==

== ENCOUNTER → 2025-02-18 08:39 | Outpatient (BNVA) | payer MEDICARE, SELFPAY | PROVIDERS: PCP Family Medicine; Referring Provider Family Medicine; Visit Provider Student in an Organized Health Care Education/Training Program | DX: M48.02 Spinal stenosis, cervical region (principal); M75.21 Bicipital tendinitis, right shoulder | CPT/HCPCS: 99213 ==

== ENCOUNTER 2025-04-30 04:30 | Inpatient (IN) | payer MEDICARE, SELFPAY ==
[2025-04-30] VITALS (106 sets, daily range): BP systolic 104–192; BP diastolic 37–123; PULSE 53–87; RESP 14–28; TEMP 36.1–38.5; O2SAT 87–100; BMI 28.8
--- NOTE | 2025-04-30 05:13 | W.ED.GENAD ---
Discharge Plan Discharge Details Chief Complaint: Abd Prob Clinical Impression: Acute flank pain Primary Care Provider: Edwin Bonilla ED Provider: Elvia Pino Home Meds and New Rx's Prescriptions: No Action cyanocobalamin (vitamin B-12) 1,000 mcg capsule 1,000 mcg PO DAILY cholecalciferol (vitamin D3) 75 mcg (3,000 unit) tablet 5,000 unit PO DAILY magnesium 250 mg tablet 250 mg PO DAILY acyclovir 200 mg capsule 400 mg PO TID PRN (Reason: Herpes simplex) Qty: 180 4RF atenolol 50 mg tablet 75 mg PO HS Qty: 135 4RF Rx Instructions: take one and a half tablet daily carbidopa-levodopa 25-100 mg tablet 1 - 2 tab PO HS Qty: 180 1RF Rx Instructions: NOT SENT HPI General Mode of arrival: ambulatory. Date/Time Provider Initiated Documentation: 04/30/25 04:59. Limitations to Documentation: no limitations. Information obtained by: patient. HPI Narrative: 70yo F with hx CKD, COPD, presenting for left flank pain. Woke up several hours ago with severe left sided back/flank pain radiating to her left mid-abdomen with associated nausea. No vomiting. Feels similar to a kidney stone she had in the past in her 20's and she has had no other stones since then. Pain has been constant and worsening since onset. Has not taken anything at home for pain; concerned about NSAIDs due to her CKD. No alleviating or aggravating factors. No numbness or weakness in her upper extremities. The pain is not pleuritic. No dysuria or hematuria. She is otherwise in her usual state of health with no fevers, chills, rash, abdominal pain, or other concerns. Related Data Home Medications ?Medication ?Instructions ?Recorded ?Confirmed acyclovir 200 mg capsule 400 mg (2 x 200 mg) PO TID PRN 03/25/19 04/30/25 Herpes simplex #180 tab-caps atenolol 50 mg tablet 75 mg (1.5 x 50 mg) PO HS #135 tabs 12/22/19 04/30/25 carbidopa 25 mg-levodopa 100 mg 1 - 2 tab (1 - 2 x 25-100 mg) PO 09/17/20 04/30/25 tablet HS #180 tab-caps cholecalciferol (vitamin D3) 75 5,000 unit PO DAILY 05/19/24 04/30/25 mcg (3,000 unit) tablet cyanocobalamin (vitamin B-12) 1,000 mcg PO DAILY 05/19/24 04/30/25 1,000 mcg capsule magnesium 250 mg tablet 250 mg PO DAILY 02/18/25 04/30/25 Previous Rx's ?Medication ?Instructions ?Recorded acyclovir 200 mg capsule 400 mg (2 x 200 mg) PO TID PRN 03/25/19 Herpes simplex #180 tab-caps atenolol 50 mg tablet 75 mg (1.5 x 50 mg) PO HS #135 tabs 12/22/19 carbidopa 25 mg-levodopa 100 mg 1 - 2 tab (1 - 2 x 25-100 mg) PO 09/17/20 tablet HS #180 tab-caps Allergies Allergy/AdvReac Type Severity Reaction Status Date / Time Penicillins AdvReac Mild Other (See Verified 04/30/25 05:13 Comment) benzonatate AdvReac Unknown Ineffective Verified 04/30/25 05:13 General Stated Complaint: Abd Prob SIMI: 3 Review of Systems Narrative: see HPI Exam Narrative Exam Narrative: General: Alert, nontoxic, appears to be in discomfort. Head: Normocephalic, atraumatic Neck: Trachea midline, ?Neck supple. ENT: ?MMM.? No oropharygeal lesions or exudate. Cardiac: ?RRR, no murmurs appreciated. Equal radial pulses. Resp: No respiratory distress. CTAB. Abd: ?Soft, non-distended, nontender. : ?No suprapubic tenderness. No CVA tenderness. Extremities: ?No deformities.? No peripheral edema. Neurologic: GCS 15. ? Moves all extremities freely against gravity Course Vital Signs Vital signs: Vital Signs Temperature 36.1 C L 04/30/25 04:30 Pulse 56 L 04/30/25 04:30 Respiratory Rate 18 04/30/25 04:30 Blood Pressure 192/64 H 04/30/25 04:30 Pulse Oximetry 97 04/30/25 04:30 Temperature 36.1 C L 04/30/25 04:30 Temperature Source Tympanic 04/30/25 04:30 Pulse 56 L 04/30/25 04:30 Respiratory Rate 18 04/30/25 04:30 Blood Pressure 192/64 H 04/30/25 04:30 Pulse Oximetry 97 04/30/25 04:30 Oxygen Delivery Method Room Air 04/30/25 04:30 Oxygen Flow Rate 0 04/30/25 04:30 Pain Level 10 04/30/25 04:30 Medical Decision Making 70yo F with hx CKD, COPD, presenting for severe back/flank pain radiating to her left mid abdomen that woke her from sleep. Hypertensive on arrival 190's/60's. No abdominal tenderness on exam; equal radial pulse and BP equal bilateral UE. No chest pain or shortness of breath. Very distant history of kidney stones which patient report felt similar. Unable to void on arrival. Broad differential in this 69 year old woman (nephrolithiasis certainly possible) but with acute back/flank pain and hypertension must also consider aortic dissection/pulmonary embolism though less likely. Will risk stratify with d-dimer. Will treat symptoms initially with tylenol and zofran for symptoms, IVF to facilitate urine (caution in setting of HTN though may be 2/t pain). -Repeat BP iimproved to 150's/40's after pain/nausea medication. -EKG SR, appropriate intervals, no ST segment or T wave abnormalities to suggest occlusive DC. -Labs reviewed as below, CBC reassuring with no leukocytosis or anemia, CMP with Cr 1.7 (pt reports new diagnosis of CKD) and no actionable abnormalities, Mg normal, lactate normal. Dimer elevated; will get CTA to evalaute for dissection (as well as other intrabdominal/thoracic pathology including pulmonary embolism, nephrolithiasis, bowel pathology). Risk/benefit of contrast infusion in this pt with CKD favors imaging given differential including life threatening pathology. Will be signed out to oncoming physician pending CTA as well as UA. Disposition pending results and clinical course. Lab Data Lab results reviewed: Yes I reviewed the patient's lab results. PFSH All Active Problems (Updated 04/30/25 @ 06:19 by Elvia Pino MD) Acute flank pain (Acute) Tendonitis of long head of biceps brachii of right shoulder (Acute) Venous insufficiency (Acute) Pre-ulcerative calluses (Acute) Onychomycosis (Acute) Nail dystrophy (Acute) Pain, foot (Acute) Corns and callosities (Acute) Left knee pain (Acute) COPD (chronic obstructive pulmonary disease) (Chronic) Obesity (Chronic) Asymptomatic menopausal state (Acute) Polyneuropathy (Acute) Statin intolerance (Acute) Elevated hemoglobin A1c (Acute) Vitamin B 12 deficiency (Acute) Pes anserinus bursitis of right knee (Acute) Bilateral lower extremity edema (Acute) Status post total knee replacement, right (Acute 10/29/19) Actinic keratosis (Acute) Babinski reflex (Acute 12/08/15) Cervical stenosis of spinal canal (Acute 01/11/16) Gastroesophageal reflux disease (Acute) Hiatal hernia (Acute) Hyperlipidemia (Acute) Idiopathic peripheral neuropathy (Acute 01/11/16) Restless legs (Acute) Smoker (Acute) Quit 6 years ago. Supraventricular tachycardia (Acute) Medical History Melanoma Type 2 diabetes mellitus with diabetic polyneuropathy, without long-term current use of insulin Nephrolithiasis Pyloric ulcer associated with Helicobacter pylori Herpes simplex type 1 infection Condyloma vulva age 21 yrs Cryo Tx Surgical History Trigger finger, right little finger S/P Release: 09/26/2022 S/P cataract extraction section 1988 Dilation and curettage 1987 post SAB Family History Mother Diabetes Personal history of malignant neoplasm Pituitary Heart disease Stroke Father Alzheimers disease Heart disease Stroke Brother Personal history of malignant neoplasm Stomach Stroke Grandfather Heart disease Grandfather Heart disease Grandmother Heart disease Other Hyperlipidemia Social History Smoking/Tobacco Use Status: Former Tobacco Use Tobacco: How many years used: 40 Smoking risk assessment performed?: Yes Alcohol Intake: current Alcohol Intake frequency: holidays/special occasions only Alcohol type: wine Drug use: Never Substance use type: does not use Caregiver/Support person: No Household members: spouse Housing: house Number of Children: 1 Communication Needs: None Do you need help understanding health information?: Never current occupation: Retail Pets and animals: No Current gender identity: decline to answer What type of physical activity do you participate in: none Seatbelt use: never Drive intox or ride w/intox minibus driver: No Additional Social history: Youngest of 7 kids, though estranged from her siblings. Her father was a GP.
[2025-04-30] MEDS: Normal Saline 1,000 ML 1000 ML IV (05:16)
[2025-04-30] MEDS: ACETAMINOPHEN 1,000 MG/100 ML BAG 400 MG IVPB (05:16)
[2025-04-30 05:21] LABS: Abs Immature Grans 0.02 10^3/uL (0.0-0.06); HCT 40.8 % (36.0-46.0); HGB 13.6 g/dL (11.2-15.7); Immature Grans % 0.2 %; MCH 30.4 pg (27.0-33.0); MCHC 33.3 % (32.0-36.0); MCV 91 fL (80-95); MPV 9.4 fL (8.0-11.0); Platelet Count 228 10^3/uL (130-400); RBC 4.48 10^6/uL (3.93-5.22); RDW 12.4 % (11.7-14.6); RDW-SD 40.8 fL; WBC 9.17 10^3/uL (4.4-10.8)
[2025-04-30] MEDS: Ondansetron 4 MG/2 ML VIAL IVP (05:22)
[2025-04-30 05:38] LABS: Magnesium 2.3 mg/dL (1.6-2.6)
[2025-04-30 05:42] LABS: ALT < 7 U/L (10-49); AST 20 U/L (<34); Albumin 4.4 g/dL (3.4-5.0); Alkaline Phosphatase 96 U/L (46-116); Anion Gap 9 mmol/L (3-11); BUN 26 mg/dL (9-23); Bilirubin, Total 0.70 mg/dL (0.2-1.2); CO2 27.0 mmol/L (20.0-31.0); Calcium 9.4 mg/dL (8.3-10.6); Chloride 103 mmol/L (98-107); Glucose 142 mg/dL (74-106); Potassium 4.3 mmol/L (3.5-5.1); Sodium 139 mmol/L (136-145); Total Protein 7.8 g/dL (5.7-8.2)
[2025-04-30 05:47] LABS: D-Dimer 855 ng/mlFEU (<500)
--- NOTE | 2025-04-30 06:00 | RT.EKG_ITS ---
APPROVED REPORT Exam: Resting ECG Reason for Exam: hypertension Patient Location: E HR:57 bpm ECG Measurements Heart Rate 57 AXIS IN 80 P 60 QRSd 89 QRS 57 QT 467 T 55 QTc 456 Conclusion Sinus bradycardia...rate< 60 Atrial premature complex...SV complex w/ short R-R interval no ST segment or T wave abnormalities to suggest occlusive NM
--- NOTE | 2025-04-30 06:56 | DI.CT_ITS ---
Exam(s) CT THORAX ABD/PEL CTA EXAM: CT THORAX ABD/PEL CTA CLINICAL HISTORY: eval dissection. TECHNIQUE: Imaging Protocol: Axial CT angiography was performed with multi- slice acquisition and multi-planar and/or 3D reconstructions. CONTRAST MATERIAL: Intravenous: Omnipaque 350 Contrast volume:75 ml Oral: no COMPARISON: No exams were available for comparison FINDINGS: CHEST: Pulmonary Arteries: Mildly prominent. No evidence of filling defect to suggest pulmonary emboli. Tracheobronchial tree: Patent where visualized. Mediastinum and Radha: No dominant adenopathy or fluid collection. Pulmonary parenchyma: No consolidation or dominant measurable mass. Mild emphysematous changes. Biapical scarring. Pleura: No effusion or pneumothorax. Heart: The heart is mildly dilated. Mild coronary artery calcifications are seen. Aorta: Thoracic aorta non-dilated. Mild calcifications at the aortic annulus. Irregular atherosclerotic plaque at the lower descending aorta. Bones: Degenerative disc changes. No compression fractures. Tubes, Catheters, and Lines: None ABDOMEN AND PELVIS: Abdomen: Celiac axis/mesenteric arteries: Focal stenosis approximally 50 percent at the origins of the celiac axis. Mild stenosis at the proximal superior mesenteric artery. The VERONIKA is unremarkable. Renal Arteries: Severe stenosis at the origin of the right renal artery. Moderate stenosis of the proximal left renal artery. There is a single renal artery perfusing each kidney. Aorta: Irregular calcific plaque causing [id number] stenosis, greater distally.. No aneurysm or dissection. Pelvis: Iliac Arteries: Approximately 50 percent stenosis in right common iliac artery. Common Femoral Arteries: No evidence of occlusion. Calcific plaque causing [id number] stenosis. ABDOMEN: Liver: Normal density. No measurable mass. Portal, Superior Mesenteric, and Splenic Veins: Unremarkable. Gallbladder and Biliary Tract: No radiodense calculus or dilation. Pancreas: Normal density, no abnormal calcifications or inflammatory process. Spleen: Normal. Adrenals: No masses seen. Kidneys: Mild right renal atrophy. Enlargement of the left kidney. Mild left hydronephrosis secondary to a 12 millimeter stone at the ureteropelvic junction. Mild delay in nephrogram. There is urothelial enhancement consistent with inflammation versus infection. Mild perinephric stranding. Additional upper pole calculus measuring 17 millimeters. Other smaller stones in the left kidney. No suspicious masses seen. Cysts are noted. Bowel: No obstruction or bowel wall thickening. Appendix is unremarkable. Diverticulosis. Peritoneal Cavity: No ascites, collection or mesenteric inflammatory response. Lymph Nodes: Within normal limits. Bones: Unremarkable degenerative changes. Soft Tissues: Unremarkable. PELVIS: Bladder: Sy empty. Reproductive Organs: Unremarkable as visualized. Lymph Nodes: Within normal limits. Bones: Advanced degenerative changes of the hips, left greater than right. IMPRESSION: Chest: No evidence of dissection or pulmonary emboli. Atherosclerotic changes of the descending thoracic aorta. No aneurysm. Abdomen pelvis: Significant atherosclerotic changes causing severe stenosis of the left right renal artery and moderate stenosis of the left renal artery. Also significant stenosis of the celiac axis. 12 millimeter calculus at the left ureteropelvic junction causing moderate left hydronephrosis. There is urothelial enhancement which could be secondary to infection versus inflammation. The preliminary [facility] report was reviewed. RADIATION DOSE DELIVERED: 1,221.49mGy.cm Total DLP DATA REPOSITORY: All CT scans at this facility are submitted to the National Radiology Data Registry (NRDR) Dose Index Registry (DIR) with the [employer] (ACR). RADIATION OPTIMIZATION: All CT scans at this facility use at least one of these dose optimization techniques: automated exposure control; mA and/or kV adjustment per patient size (includes targeted exams where dose is matched to clinical indication); or iterative reconstruction.
[2025-04-30 07:02] LABS: Glucose 100 mg/dL (Negative)
[2025-04-30 07:13] LABS: WBC >50 HPF (0-5)
[2025-04-30 07:14] LABS: C & S Indicated? Yes
[2025-04-30] MEDS: Omnipaque 350 MG/ML 500 ML BTL-Imaging package IJ (07:32)
[2025-04-30] MEDS: Normal Saline - Diluent 50 ML VIAL IJ (07:33)
[2025-04-30] MEDS: cefTRIAXone 1 GM/50 ML BAG IVPB (07:39)
[2025-04-30] MEDS: Lactated Ringers 500 ML IV (07:57)
--- NOTE | 2025-04-30 08:16 | DI.[facility]_ITS ---
PROCEDURE INFORMATION: Exam: CTA Chest With Contrast CTA Abdomen and Pelvis With Contrast Exam date and time: 04/30/2025 7:17 AM Age: 70 years old Clinical indication: Screening exam; Other screening; Purpose: Eval dissection TECHNIQUE: Imaging protocol: Computed tomographic angiography of the chest with contrast. Exam focused on the arteries. Computed tomographic angiography of the abdomen and pelvis with contrast. Exam focused on the arteries. 3D rendering (Not supervised by radiologist): MIP and/or 3D reconstructed images were created by the technologist. COMPARISON: No relevant prior studies for comparison. FINDINGS: VASCULATURE: Pulmonary arteries: Normal caliber main pulmonary artery. No central pulmonary arterial filling defects. Aorta: Normal in caliber, without aneurysm or dissection. Scattered mild to moderate fibrofatty and calcified atherosclerotic plaque throughout the thoracic and abdominal aorta. Celiac and mesenteric arteries: No occlusion. Short segment, approximately 60% stenoses in the proximal celiac and superior mesenteric arteries and at their origins due to fibrofatty and calcified atherosclerotic plaque. Renal arteries: No occlusion. Severe stenosis in the proximal right renal artery and at its origin due to fibrofatty and calcified atherosclerotic plaque. Right iliac arteries: No occlusion or significant stenosis. Approximately 50% stenosis in the right common iliac artery due to fibrofatty and calcified atherosclerotic plaque Left iliac arteries: No occlusion or significant stenosis. CHEST: Lungs: Mild biapical paraseptal emphysema with biapical pleural-parenchymal scarring. Mild upper lobe predominant centrilobular emphysema. No consolidation or mass. Pleural spaces: No pneumothorax. No pleural effusion. Heart: Mild cardiomegaly. Aortic annular calcifications and mild coronary artery calcifications. No pericardial effusion. ABDOMEN AND PELVIS: Liver: Morphologic changes of cirrhosis in the liver, with hepatic steatosis. Gallbladder and biliary ducts: No calcified gallstones. No intrahepatic or extrahepatic biliary ductal dilation. Pancreas: Mildly atrophic. No acute abnormality. Spleen: Normal in size. Adrenal glands: Unremarkable. Kidneys and ureters: There is mild left hydronephrosis with an elongated, approximately 1.2 cm x 0.5 cm x 0.6 cm obstructing calculus at the ureteropelvic junction (see series 14, images 181-187 and series 10, images 91-95). There is mural thickening and enhancement in the left renal pelvis and calyces, which could be inflammatory or infectious in etiology. The left kidney appears edematous, with mild perinephric fat stranding. Additional calculi are present in the left kidney, the largest an irregular calculus in the upper pole that measures up to 1.7 cm. The right renal collecting system and right ureter are normal in caliber. There are simple-appearing cortical cysts in both kidneys, as well as incidental hypoattenuating cortical foci which measure less than 1 cm and are too small to characterize. Stomach and bowel: The stomach is nondilated. The small and large bowel are normal in caliber. There are scattered diverticula in the descending and sigmoid colon without evidence of diverticulitis. Appendix: A nondilated appendix is identified. Intraperitoneal space: No ascites, fluid collection, or pneumoperitoneum. Urinary bladder: Completely collapsed/decompressed. Reproductive: Unremarkable as visualized. Lymph nodes: No pathologically enlarged lymph nodes. Bones/joints: Degenerative changes. No suspicious osseous lesions. Soft tissues: Unremarkable. IMPRESSION: 1. No aortic dissection or aneurysm. 2. Mild left hydronephrosis secondary to an obstructing 1.2 cm x 0.5 cm x 0.6 cm obstructing calculus at the ureteropelvic junction. 3. Mural thickening and enhancement in the left renal pelvis and calyces could be inflammatory/reactive (related to the recently passed calculus), though a left upper urinary tract infection could also have this appearance (in the appropriate clinical setting). 4. Several additional incidental/nonemergent findings are discussed in the body of the report. Dictated and Authenticated by: Minerva Albert MD. Orderin Odette Gan MD
--- NOTE | 2025-04-30 09:05 | W.EDPROG ---
Date of service: 04/30/25 Time of Service: 09:06 Medical Decision Making 918 -- Care was signed out by Dr. Pino, please see her documentation regarding initial ED presentation and course. Plan at signout was to follow-up on CT to rule out pulmonary embolism versus renal stone versus other. CTA of the chest abdomen pelvis interpreted by radiology: No aortic dissection or aneurysm. Mild left hydronephrosis secondary to an obstructing 1.2 cm x 0.5 cm x 0.6 cm obstructing calculus at the UPJ. Mural thickening and enhancement in the left renal pelvis and calyces could be inflammatory/reactive (related to the recently passed calculus) though a left upper urinary tract infection could also have this appearance (in the appropriate clinical setting). Several additional incidental nonemergent findings noted including scattered diverticula in the descending and sigmoid colon without evidence of diverticulitis. Morphologic changes of cirrhosis in the liver, with hepatic steatosis. Mild cardiomegaly. Aortic annular calcifications and mild coronary artery calcifications. Mild biapical paraseptal emphysema with biapical pleural-parenchymal scarring. Mild upper lobe predominant central emphysema. Scattered mild to moderate fibrofatty and calcified atherosclerotic plaque throughout the thoracic and abdominal aorta. Approximately 60% short segment stenosis in proximal celiac and superior mesenteric arteries and at their origins due to fibrofatty and calcified atherosclerotic plaque. Severe stenosis in the proximal right renal artery and at its origin due to fibrofatty and calcified atherosclerotic plaque. Approximately 50% stenosis in the right common iliac artery due to fibrofatty and calcified atherosclerotic plaque. Labs reviewed and concern for urinary tract infection. This raises potential for septic stone. Creatinine is elevated at 1.7 with GFR 29. I have initiated treatment with ceftriaxone IV. Patient received 1 L of IV fluid prior to signout. I will give an additional 500 mL liter crystalloid bolus post CT. -- I spoke with Dr. Snyder, discussed ED presentation course, he will plan to place stent today. -- I spoke with the hospitalist on-call, Dr. Whelan, discussed ED presentation and course, he will admit the patient. Lab Data Lab results reviewed: Yes I reviewed the patient's lab results. Labs: 04/30/25 06:17 Urine - Reflex from Ua Urine Culture - Pending Laboratory Tests Range/Units 04/30/25 04/30/25 05:05 06:17 WBC (4.4-10.8) 10^3/uL 9.17 RBC (3.93-5.22) 10^6/uL 4.48 Hgb (11.2-15.7) g/dL 13.6 Hct (36.0-46.0) % 40.8 MCV (80-95) fL 91 MCH (27.0-33.0) pg 30.4 MCHC (32.0-36.0) % 33.3 RDW (11.7-14.6) % 12.4 Plt Count (130-400) 10^3/uL 228 MPV (8.0-11.0) fL 9.4 Immature Gran % % 0.2 Neutrophils % % 82.6 Lymphocytes % % 10.6 Monocytes % % 4.8 Eosinophils % % 1.1 Basophils % % 0.7 Nucleated RBC % (0.0-0.3) % 0.0 Absolute Neutrophils (1.2-6.7) 10^3/uL 7.58 H Absolute Lymphocytes (1.2-3.4) 10^3/uL 0.97 L Absolute Monocytes (0.1-0.8) 10^3/uL 0.44 Absolute Eosinophils (0.0-0.7) 10^3/uL 0.10 Absolute Basophils (0.0-0.2) 10^3/uL 0.06 D-Dimer (<500) ng/mlFEU 855 H VBG Lactate (<or=2.0) mmol/L 0.9 Sodium (136-145) mmol/L 139 Potassium (3.5-5.1) mmol/L 4.3 Chloride (98-107) mmol/L 103 Carbon Dioxide (20.0-31.0) mmol/L 27.0 Anion Gap (3-11) mmol/L 9 BUN (9-23) mg/dL 26 H Creatinine (0.55-1.02) mg/dL 1.7 H Est GFR (CKD-EPI 2020) (mL/min/1.73m2) 29.22 Glucose (74-106) mg/dL 142 H Calcium (8.3-10.6) mg/dL 9.4 Magnesium (1.6-2.6) mg/dL 2.3 Total Bilirubin (0.2-1.2) mg/dL 0.70 AST (<34) U/L 20 ALT (10-49) U/L < 7 L Alkaline Phosphatase (46-116) U/L 96 Total Protein (5.7-8.2) g/dL 7.8 Albumin (3.4-5.0) g/dL 4.4 Urine Color (Yellow) Yellow Urine Clarity (Clear) Cloudy Urine pH (5-8) 5.5 Ur Specific [place] (1.005-1.025) 1.025 Urine Protein (Neg-Trace) mg/dL 100 H Urine Ketones (Negative) mg/dL 15 H Urine Blood (Negative) Moderate H Urine Nitrite (Negative) Positive H Urine Bilirubin (Negative) Negative Urine Urobilinogen (Up to 0.2) mg/dL 0.2 Ur Leukocyte Esterase (Negative) Moderate H Urine RBC (0-2) HPF 10-20 H Urine WBC (0-5) HPF >50 H Ur Epithelial Cells (Negative) HPF Few Urine Crystals (Negative) HPF Negative Urine Bacteria (Negative) HPF Few Urine Casts (Negative) LPF 0-2 Hyaline Urine Mucus (Negative) Trace Ur Culture Indicated? Yes Urine Glucose (Negative) mg/dL 100 H Quality:SDOH Health Related Social Needs: Health related social needs education Discharge Plan Disposition Patient Disposition: Admit to [facility] Condition: Serious Discharge Details Clinical Impression: Calculus of left ureter, Complicated urinary tract infection Admit Date/Time: 04/30/25 10:10 Admit Provider: Baldomero Whelan Attending Provider: Baldomero Whelan Primary Care Provider: Edwin Bonilla ED Provider: Vini Melendez Discharge Data Discharge Date/Time-TO BE ENTERED AT DEPARTURE: 04/30/25 10:40
--- NOTE | 2025-04-30 09:34 | W.UROLOGYCON ---
Date of service: 04/30/25 Time of Service: 10:33 Assessment and Plan Assessment and plan (1) Nephrolithiasis: (2) Hydronephrosis of left kidney: Status: Acute (3) UTI (urinary tract infection): Status: Acute Assessment and plan: With the presence of infected urine and hydronephrosis, we recommend emergent/urgent placement of a left ureteral stent. We do not attempt to treat the patient's stones while patients are acutely infected. We will make arrangements to place a stent today. Once her infection has resolved, we can consider more definitive therapy. We could offer her ureteroscopy and holmium laser lithotripsy but given her stone burden, she would likely need staged procedures. Her other option would be percutaneous nephrolithotomy which would require treatment at a tertiary care center that has access to interventional radiology. These options will be discussed after her antibiotic treatment is completed History of Present Illness History of Present Illness Chief Complaint: Left hydronephrosis Narrative: This is a 70-year-old woman has a distant history of urolithiasis. She recalls having passed a stone when she was in her 20s. She has never required surgical treatment for stone disease. She presented to the emergency department with abdominal pain. At the time of her presentation, she was not certain that her pain was related to stone disease. She was evaluated with a CT scan and was found to have left hydronephrosis, an obstructing stone at the left ureteropelvic junction and infected urine. She is not having fevers and chills. She does have nausea. She tells me that she recently was diagnosed with a renal insufficiency and diabetes for the first time. No additional renal imaging has been accomplished. She is unsure of her previous stones chemical composition. She has no known history of gout or hyperparathyroidism. Review of Systems Narrative: No fevers or chills No vision change or dysphasia Diabetes. No thyroid dysfunction COPD. No cough or hemoptysis No chest pain or palpitations GERD. No hepatitis, ulcers, jaundice No seizures or strokes No bleeding disorders or anemia Arthralgia. No gout PFSH All Active Problems (Updated 04/30/25 @ 10:13 by Baldomero Whelan MD) Left ureteral stone (Acute) UTI (urinary tract infection) (Acute) Hydronephrosis of left kidney (Acute) Acute flank pain (Acute) Tendonitis of long head of biceps brachii of right shoulder (Acute) Venous insufficiency (Acute) Pre-ulcerative calluses (Acute) Onychomycosis (Acute) Nail dystrophy (Acute) Pain, foot (Acute) Corns and callosities (Acute) Left knee pain (Acute) COPD (chronic obstructive pulmonary disease) (Chronic) Obesity (Chronic) Asymptomatic menopausal state (Acute) Polyneuropathy (Acute) Statin intolerance (Acute) Elevated hemoglobin A1c (Acute) Vitamin B 12 deficiency (Acute) Pes anserinus bursitis of right knee (Acute) Bilateral lower extremity edema (Acute) Status post total knee replacement, right (Acute 10/29/19) Actinic keratosis (Acute) Babinski reflex (Acute 12/08/15) Cervical stenosis of spinal canal (Acute 01/11/16) Gastroesophageal reflux disease (Acute) Hiatal hernia (Acute) Hyperlipidemia (Acute) Idiopathic peripheral neuropathy (Acute 01/11/16) Restless legs (Acute) Smoker (Acute) Quit 6 years ago. Supraventricular tachycardia (Acute) Medical History Melanoma Type 2 diabetes mellitus with diabetic polyneuropathy, without long-term current use of insulin Nephrolithiasis Pyloric ulcer associated with Helicobacter pylori Herpes simplex type 1 infection Condyloma vulva age 21 yrs Cryo Tx Surgical History Trigger finger, right little finger S/P Release: 09/26/2022 S/P cataract extraction section 1988 Dilation and curettage 1987 post SAB Family History Mother Diabetes Personal history of malignant neoplasm Pituitary Heart disease Stroke Father Alzheimers disease Heart disease Stroke Brother Personal history of malignant neoplasm Stomach Stroke Grandfather Heart disease Grandfather Heart disease Grandmother Heart disease Other Hyperlipidemia Social History Smoking/Tobacco Use Status: Former Tobacco Use Tobacco: How many years used: 40 Smoking risk assessment performed?: Yes Alcohol Intake: current Alcohol Intake frequency: holidays/special occasions only Alcohol type: wine Drug use: Never Substance use type: does not use Caregiver/Support person: No Household members: spouse Housing: house Number of Children: 1 Communication Needs: None Do you need help understanding health information?: Never current occupation: Retail Pets and animals: No Current gender identity: decline to answer What type of physical activity do you participate in: none Seatbelt use: never Drive intox or ride w/intox trencher driver: No Additional Social history: Youngest of 7 kids, though estranged from her siblings. Her father was a GP. Exam Narrative Exam Narrative: She appears quite uncomfortable Her vital signs are documented elsewhere in the chart Her chest wall motion is normal. The lungs are clear Cardiac exam shows a regular rate and rhythm Her abdomen is obese but soft with no peritoneal signs She is awake and alert Results Last Vital Signs Temp 36.1 C L 04/30/25 04:30 Pulse 60 04/30/25 06:50 Resp 18 04/30/25 05:52 BP 149/52 H 04/30/25 07:01 Pulse Ox 94 04/30/25 07:01 Labs 04/30/25 05:05 04/30/25 05:05 Labs: Laboratory Results - last 24 hr 04/30/25 04/30/25 05:05 06:17 WBC 9.17 RBC 4.48 Hgb 13.6 Hct 40.8 MCV 91 MCH 30.4 MCHC 33.3 RDW 12.4 Plt Count 228 MPV 9.4 Immature Gran % 0.2 Neutrophils % 82.6 Lymphocytes % 10.6 Monocytes % 4.8 Eosinophils % 1.1 Basophils % 0.7 Nucleated RBC % 0.0 Absolute Neutrophils 7.58 H Absolute Lymphocytes 0.97 L Absolute Monocytes 0.44 Absolute Eosinophils 0.10 Absolute Basophils 0.06 D-Dimer 855 H VBG Lactate 0.9 Sodium 139 Potassium 4.3 Chloride 103 Carbon Dioxide 27.0 Anion Gap 9 BUN 26 H Creatinine 1.7 H Est GFR (CKD-EPI 2020) 29.22 Glucose 142 H Calcium 9.4 Magnesium 2.3 Total Bilirubin 0.70 AST 20 ALT < 7 L Alkaline Phosphatase 96 Total Protein 7.8 Albumin 4.4 Urine Color Yellow Urine Clarity Cloudy Urine pH 5.5 Ur Specific [place] 1.025 Urine Protein 100 H Urine Ketones 15 H Urine Blood Moderate H Urine Nitrite Positive H Urine Bilirubin Negative Urine Urobilinogen 0.2 Ur Leukocyte Esterase Moderate H Urine RBC 10-20 H Urine WBC >50 H Ur Epithelial Cells Few Urine Crystals Negative Urine Bacteria Few Urine Casts 0-2 Hyaline Urine Mucus Trace Ur Culture Indicated? Yes Urine Glucose 100 H Imaging Imaging Studies: I reviewed her CT scan on the PACS system. She has left hydronephrosis related to a left UPJ stone. She does have rather large stone burden up in the kidney as well.
--- NOTE | 2025-04-30 09:37 | W.ANESPRE ---
General Info Date of Service Date Performed: 04/30/25 Height: 5 ft 8.11 in Weight: 86.183 kg Body Mass Index (BMI): 28.8 Meds Allergies and Home Medications Allergies Allergy/AdvReac Type Severity Reaction Status Date / Time Penicillins AdvReac Mild Other (See Verified 04/30/25 05:13 Comment) benzonatate AdvReac Unknown Ineffective Verified 04/30/25 05:13 Home Medication ?Medication ?Instructions ?Recorded acyclovir 200 mg capsule 400 mg (2 x 200 mg) PO TID PRN 03/25/19 Herpes simplex #180 tab-caps atenolol 50 mg tablet 75 mg (1.5 x 50 mg) PO HS #135 tabs 12/22/19 carbidopa 25 mg-levodopa 100 mg 1 - 2 tab (1 - 2 x 25-100 mg) PO 09/17/20 tablet HS #180 tab-caps cholecalciferol (vitamin D3) 75 5,000 unit PO DAILY 05/19/24 mcg (3,000 unit) tablet cyanocobalamin (vitamin B-12) 1,000 mcg PO DAILY 05/19/24 1,000 mcg capsule magnesium 250 mg tablet 250 mg PO DAILY 02/18/25 Current Visit Medications: Current Medications Generic Name Dose Route Start Last Admin Trade Name Freq PRN Reason Stop Dose Admin Iohexol 500 ml 04/30/25 07:45 04/30/25 07:32 Omnipaque 350 Mg/Ml 500 Ml Btl-Imaging Package IJ 05/30/25 23:59 75 ml DIRECTED ERIC Administration Sodium Chloride 50 ml 04/30/25 07:45 04/30/25 07:33 Normal Saline - Diluent 50 Ml Vial IJ 75 ml DIRECTED ERIC Administration PFSH Active Problems Active Problems: Problem Status Onset Code UTI (urinary tract infection) Acute N39.0 Hydronephrosis of left kidney Acute N13.30 Acute flank pain Acute R10.A0 Tendonitis of long head of biceps brachii of right shoulder Acute M75.21 Venous insufficiency Acute I87.2 Pre-ulcerative calluses Acute L84 Onychomycosis Acute B35.1 Nail dystrophy Acute L60.3 Pain, foot Acute M79.673 Corns and callosities Acute L84 Left knee pain Acute M25.562 COPD (chronic obstructive pulmonary disease) Chronic J44.9 Obesity Chronic E66.9 Asymptomatic menopausal state Acute Z78.0 Polyneuropathy Acute G62.9 Statin intolerance Acute Z78.9 Elevated hemoglobin A1c Acute R73.09 Vitamin B 12 deficiency Acute E53.8 Pes anserinus bursitis of right knee Acute M70.51 Bilateral lower extremity edema Acute R60.0 Status post total knee replacement, right Acute 10/29/19 Z96.651 Actinic keratosis Acute L57.0 Babinski reflex Acute 12/08/15 R29.2 Cervical stenosis of spinal canal Acute 01/11/16 M48.02 Gastroesophageal reflux disease Acute K21.9 Hiatal hernia Acute K44.9 Hyperlipidemia Acute E78.5 Idiopathic peripheral neuropathy Acute 01/11/16 G60.9 Restless legs Acute G25.81 Smoker Acute F17.200 Supraventricular tachycardia Acute I47.1 Medical History Medical History Melanoma Type 2 diabetes mellitus with diabetic polyneuropathy, without long-term current use of insulin Nephrolithiasis Pyloric ulcer associated with Helicobacter pylori Herpes simplex type 1 infection Condyloma vulva age 21 yrs Cryo Tx Surgical History Surgical History Trigger finger, right little finger S/P Release: 09/26/2022 S/P cataract extraction section 1988 Dilation and curettage 1987 post SAB Tobacco Smoking/Tobacco Use Status: Former Tobacco Use Passive smoking exposure: Yes Alcohol Alcohol Intake: current Alcohol intake frequency: holidays/special occasions only Alcohol type: wine Substance Use Substance use: Never Substance use type: does not use Vital Signs and Lab Results Vital Signs Most Recent Vital Signs in EMR: Most Recent Vital Signs Temp Pulse Resp BP Pulse Ox 36.1 C L 60 18 149/52 H 94 04/30/25 04:30 04/30/25 06:50 04/30/25 05:52 04/30/25 07:01 04/30/25 07:01 Lab Results 04/30/25 05:05 04/30/25 05:05 Complete Blood Count: WBC, (4.4-10.8) 9.17 10^3/uL Today, 05:05 RBC, (3.93-5.22) 4.48 10^6/uL Today, 05:05 Hgb, (11.2-15.7) 13.6 g/dL Today, 05:05 Hct, (36.0-46.0) 40.8 % Today, 05:05 Plt Count, (130-400) 228 10^3/uL Today, 05:05 VBG Lactate, (<or=2.0) 0.9 mmol/L Today, 05:05 Complete Metabolic Panel: Sodium, (136-145) 139 mmol/L Today, 05:05 Potassium, (3.5-5.1) 4.3 mmol/L Today, 05:05 Chloride, (98-107) 103 mmol/L Today, 05:05 Carbon Dioxide, (20.0-31.0) 27.0 mmol/L Today, 05:05 BUN, (9-23) 26 mg/dL H Today, 05:05 Creatinine, (0.55-1.02) 1.7 mg/dL H Today, 05:05 Est GFR (CKD-EPI 2020), (mL/min/1.73m2) 29.22 Today, 05:05 Magnesium, (1.6-2.6) 2.3 mg/dL Today, 05:05 Calcium, (8.3-10.6) 9.4 mg/dL Today, 05:05 Albumin, (3.4-5.0) 4.4 g/dL Today, 05:05 Glucose, (74-106) 142 mg/dL H Today, 05:05 Liver Function Panel: ALT, (10-49) < 7 U/L L Today, 05:05 AST, (<34) 20 U/L Today, 05:05 Coagulation Panel: D-Dimer, (<500) 855 ng/mlFEU H Today, 05:05 Imaging and Studies Imaging and Studies Study information below may be from another EMR and interpreted by another provider. Please see original notes in EMR for more complete details. EKG Summary: 04/30/25: Exam: Resting ECG Reason for Exam: hypertension Patient Location: E HR:57 bpm ECG Measurements Heart Rate 57 AXIS MO 80 P 60 QRSd 89 QRS 57 QT 467 T55 QTc 456 Conclusion Sinus bradycardia...rate< 60 Atrial premature complex...SV complex w/ short R-R interval no ST segment or T wave abnormalities to suggest occlusive MO Echocardiogram Summary: 05/12/20: Conclusion Normal left ventricular wall thickness and chamber size. Estimated ejection fraction is 60%. There are no segmental wall motion abnormalities Normal right ventricular size and systolic function The left atrium is mildly dilated. The right atrium is normal in size The aortic valve is trileaflet without stenosis or regurgitation Mildly thickened mitral leaflets. There is mild to moderate mitral regurgitation Tricuspid valve is structurally normal with trace regurgitation. Estimated right ventricular systolic pressure is normal at 30 mmHg The pulmonic valve is structurally normal Pulmonary Function Summary: INTERPRETATION SPIROMETRY: Spirometry shows moderately severe obstructive airways disease with no significant bronchodilator response. LUNG VOLUMES: Lung volumes show no evidence of restriction. DIFFUSION CAPACITY: Mildly reduced. AIRWAY RESISTANCE: Mildly elevated. IMPRESSION: Moderately severe obstructive airways disease with no significant bronchodilator response. Clinical correlation recommended.10/09/12: Anesthesia Assessment and Plan Anesthesia History Personal History: No History of Anesthesia Complications Family History: No Family History of Anesthesia Complications Exercise Tolerance Exercise Tolerance: Metabolic Equivalents<4 Pertinent Negatives Pertinent Negatives: No Symptoms of GERD Cardiac & Pulmonary Exam Cardiac Exam: Normal S1/S2 Heart Sounds Pulmonary Exam: Clear Bilateral Breath Sounds Implantable Cardiac Device Does patient have a Pacemaker or an ICD?: No Airway Exam Known Difficult Airway: No Mallampati Class: 3 Mouth Opening: Narrow (< 3cm) Thyromental Distance: Greater than 3 cm Neck Range of Motion: Full ROM Neck Circumference: Normal Teeth Condition: Removable Dentures/Plates Upper ASA Classification ASA Score: ASA 3 Emergency Case?: Yes NPO Status NPO Status: NPO Clears >2 hours, Solids >8 hours Anesthesia Plan Resuscitation Status: Full Code Anesthesia Technique: General Anesthesia Airway Planned: Natural Airway Monitors Used: Standard Monitors Preoperative Comments:: GA LMA/ETT backup
--- NOTE | 2025-04-30 10:11 | W.PM.HP.N ---
Date of service: 04/30/25 Time of Service: 10:11 Assessment and Plan Assessment and plan (1) Left ureteral stone: Status: Acute Assessment and plan: -patient presented with left flank pain -obstructing stone seen on CT with associated hydronephrosis -UA with positive nitrites, moderate leuke esterase, >50WBCs and few bacteria, highly suggestive of infected stone -Urology consulted, will place stent today -given CTX in ED, will continue -patient did not meet SIRS criteria, but can still develop post-stent placement, will monitor (2) Hydronephrosis of left kidney: Status: Acute Assessment and plan: -secondary to infected stone as noted above History of Present Illness History of Present Illness Chief Complaint: flank pain Narrative: 70-year-old female with a past medical history of CKD presents to the emergency department with left-sided flank pain. Patient states that she woke up a few hours prior to arrival in the emergency department with left-sided flank and back pain that radiated to her mid abdomen and was associated with nausea without vomiting. She has a history of having had kidney stones in her 20s and feels somewhat similar. Otherwise she denies any headache, lightheadedness, dizziness, fever, nausea vomiting diarrhea or dysuria. In the emergency department the patient was noted to have a normal vital signs, normal CBC and CMP. However, she did have a CT abdomen pelvis that showed obstructing left ureteral stone. This in combination with urinalysis that was positive for nitrites, leuk esterase, WBCs and bacteria raise concerns for infected ureteral stone. Urology was consulted and took patient to the OR for ureteral stent placement. At which time emergency room provider paged hospitalist for admission for patient with infected left obstructing ureteral stone. Review of Systems All systems reviewed & are unremarkable except as noted in HPI and below PFSH All Active Problems (Updated 04/30/25 @ 10:13 by Baldomero Whelan MD) Left ureteral stone (Acute) UTI (urinary tract infection) (Acute) Hydronephrosis of left kidney (Acute) Acute flank pain (Acute) Tendonitis of long head of biceps brachii of right shoulder (Acute) Venous insufficiency (Acute) Pre-ulcerative calluses (Acute) Onychomycosis (Acute) Nail dystrophy (Acute) Pain, foot (Acute) Corns and callosities (Acute) Left knee pain (Acute) COPD (chronic obstructive pulmonary disease) (Chronic) Obesity (Chronic) Asymptomatic menopausal state (Acute) Polyneuropathy (Acute) Statin intolerance (Acute) Elevated hemoglobin A1c (Acute) Vitamin B 12 deficiency (Acute) Pes anserinus bursitis of right knee (Acute) Bilateral lower extremity edema (Acute) Status post total knee replacement, right (Acute 10/29/19) Actinic keratosis (Acute) Babinski reflex (Acute 12/08/15) Cervical stenosis of spinal canal (Acute 01/11/16) Gastroesophageal reflux disease (Acute) Hiatal hernia (Acute) Hyperlipidemia (Acute) Idiopathic peripheral neuropathy (Acute 01/11/16) Restless legs (Acute) Smoker (Acute) Quit 6 years ago. Supraventricular tachycardia (Acute) Medical History Melanoma Type 2 diabetes mellitus with diabetic polyneuropathy, without long-term current use of insulin Nephrolithiasis Pyloric ulcer associated with Helicobacter pylori Herpes simplex type 1 infection Condyloma vulva age 21 yrs Cryo Tx Surgical History Trigger finger, right little finger S/P Release: 09/26/2022 S/P cataract extraction section 1988 Dilation and curettage 1987 post SAB Family History Mother Diabetes Personal history of malignant neoplasm Pituitary Heart disease Stroke Father Alzheimers disease Heart disease Stroke Brother Personal history of malignant neoplasm Stomach Stroke Grandfather Heart disease Grandfather Heart disease Grandmother Heart disease Other Hyperlipidemia Social History Smoking/Tobacco Use Status: Former Tobacco Use Tobacco: How many years used: 40 Smoking risk assessment performed?: Yes Alcohol Intake: current Alcohol Intake frequency: holidays/special occasions only Alcohol type: wine Drug use: Never Substance use type: does not use Caregiver/Support person: No Household members: spouse Housing: house Number of Children: 1 Communication Needs: None Do you need help understanding health information?: Never current occupation: Retail Pets and animals: No Current gender identity: decline to answer What type of physical activity do you participate in: none Seatbelt use: never Drive intox or ride w/intox transporter driver: No Additional Social history: Youngest of 7 kids, though estranged from her siblings. Her father was a GP. Meds Allergies and Home Medications Allergies Allergy/AdvReac Type Severity Reaction Status Date / Time Penicillins AdvReac Mild Other (See Verified 04/30/25 05:13 Comment) benzonatate AdvReac Unknown Ineffective Verified 04/30/25 05:13 Home Medications ?Medication ?Instructions ?Recorded ?Confirmed ?Type acyclovir 200 mg capsule 400 mg (2 x 200 mg) PO TID PRN 03/25/19 04/30/25 Rx Herpes simplex #180 tab-caps atenolol 50 mg tablet 75 mg (1.5 x 50 mg) PO HS #135 tabs 12/22/19 04/30/25 Rx carbidopa 25 mg-levodopa 100 mg 1 - 2 tab (1 - 2 x 25-100 mg) PO 09/17/20 04/30/25 Rx tablet HS #180 tab-caps cholecalciferol (vitamin D3) 75 5,000 unit PO DAILY 05/19/24 04/30/25 History mcg (3,000 unit) tablet cyanocobalamin (vitamin B-12) 1,000 mcg PO DAILY 05/19/24 04/30/25 History 1,000 mcg capsule magnesium 250 mg tablet 250 mg PO DAILY 02/18/25 04/30/25 History Exam Narrative Exam Narrative: Well-appearing female laying in bed in no acute distress, ANO x 4, heart regular rhythm, lungs auscultation bilaterally, abdomen soft, nontender, nondistended, small surgical incision bandaged without surrounding erythema or drainage Results Labs 04/30/25 05:05 04/30/25 05:05 Labs: Laboratory Results - last 24 hr 04/30/25 04/30/25 05:05 06:17 WBC 9.17 RBC 4.48 Hgb 13.6 Hct 40.8 MCV 91 MCH 30.4 MCHC 33.3 RDW 12.4 Plt Count 228 MPV 9.4 Immature Gran % 0.2 Neutrophils % 82.6 Lymphocytes % 10.6 Monocytes % 4.8 Eosinophils % 1.1 Basophils % 0.7 Nucleated RBC % 0.0 Absolute Neutrophils 7.58 H Absolute Lymphocytes 0.97 L Absolute Monocytes 0.44 Absolute Eosinophils 0.10 Absolute Basophils 0.06 D-Dimer 855 H VBG Lactate 0.9 Sodium 139 Potassium 4.3 Chloride 103 Carbon Dioxide 27.0 Anion Gap 9 BUN 26 H Creatinine 1.7 H Est GFR (CKD-EPI 2020) 29.22 Glucose 142 H Calcium 9.4 Magnesium 2.3 Total Bilirubin 0.70 AST 20 ALT < 7 L Alkaline Phosphatase 96 Total Protein 7.8 Albumin 4.4 Urine Color Yellow Urine Clarity Cloudy Urine pH 5.5 Ur Specific [place] 1.025 Urine Protein 100 H Urine Ketones 15 H Urine Blood Moderate H Urine Nitrite Positive H Urine Bilirubin Negative Urine Urobilinogen 0.2 Ur Leukocyte Esterase Moderate H Urine RBC 10-20 H Urine WBC >50 H Ur Epithelial Cells Few Urine Crystals Negative Urine Bacteria Few Urine Casts 0-2 Hyaline Urine Mucus Trace Ur Culture Indicated? Yes Urine Glucose 100 H Last Vital Signs Temp 97 F L 04/30/25 04:30 Pulse 58 L 04/30/25 09:02 Resp 18 04/30/25 05:52 BP 166/60 H 04/30/25 09:01 Pulse Ox 96 04/30/25 09:02 Time Spent Time spent with Patient: >75 minutes Time was spent: preparing to see the patient(eg.review tests), obtaining and/or reviewing separately otained hiistory, ordering medications,tests, procedures, referring, communicating with other health caregivers non medical, indepentently interpreting results, counseling the patient and care coordination
[2025-04-30] MEDS: Lidocaine 2% Jelly 6 ML SYR (11:03)
[2025-04-30] MEDS: Omnipaque 300 MG/ML 50 ML BTL (11:09)
--- NOTE | 2025-04-30 11:15 | DI.RAD_ITS ---
Exam(s) XR RETROGRADE IN OR EXAM: XR RETROGRADE IN OR CLINICAL HISTORY: (1) Nephrolithiasis left. TECHNIQUE: Fluoroscopy was provided for the referring physician for guidance with performing retrograde procedure. COMPARISON: CT CT THORAX ABD/PEL CTA from 04/30/2025 FINDINGS: Please see procedure note for details. Fluoro time: 8.5 seconds RADIATION DOSE DELIVERED: Ka,r=2.14 mGy
--- NOTE | 2025-04-30 11:16 | ROE_ITS ---
Operative Note Operative Note PRE-OP DIAGNOSIS: left hydronephrosis with UTI POST-OP DIAGNOSIS: same PROCEDURE: cystoscopy, left retrograde pyelogram, insert left ureteral stent SURGEON: Sanjeev Snyder ANESTHESIA TYPE: Local By Surgeon and General:No Airway Refer to Anesthesia Record ESTIMATED BLOOD LOSS: 5 PATHOLOGY: none sent COMPLICATIONS: None Patient was transported to: PACU Patient's condition: stable Implants: 7 [place] by 22 to 30 cm left ureteral stent Indications: This is a 70-year-old woman who has a history of urolithiasis over 40 years ago. She passed that stone spontaneously and has never required surgical treatment. She presented to the emergency department today with abdominal pain. She was found to have an obstructing left proximal ureteral stone and evidence of a urinary tract infection. She presents urgently for placement of a ureteral stent. Findings: Left hydronephrosis with multiple filling defects hydronephrotic drip from left kidney Procedure Description: The patient was given IV antibiotics in the emergency department. She was brought to the operating room on 04/30/2025. After successful induction of general anesthesia without intubation, she was placed in the dorsal lithotomy position. The genitalia was prepped and draped. 2% Xylocaine jelly was instilled into the urethra to act as a local anesthetic. Initial attempts at passing a 22 [place] rigid cystoscope through the urethra into the bladder were not successful, so I dilated the urethra to 24 [place] and was then able to pass the cystoscope. The bladder was inspected with the 30 degree lens. The bladder was somewhat hyperemic especially along the trigone but there was no edema noted at the ureteral orifice. Both ureteral orifices appeared normal. The left orifice was cannulated with a 5 [place] access catheter and a retrograde film was obtained by injecting Omnipaque through the access catheter under fluoroscopic guidance. We were able to outline a dilated left collecting system. Multiple filling defects were seen within the collecting system. I then passed a guidewire through the lumen of the access catheter and advanced the wire up to the renal pelvis. The access catheter was removed leaving the wire in place. A hydronephrotic drip was identified from the left ureteral orifice. I then passed a 7 [place] variable length stent over the guidewire. The stent was positioned with the proximal and in the renal pelvis and the distal end within the bladder. The positioning of the stent was confirmed both fluoroscopically and cystoscopically. The bladder was emptied and the cystoscope was withdrawn. The patient tolerated this procedure well with no complications. She was taken to the recovery room in stable condition. Date of Procedure: 04/30/25
--- NOTE | 2025-04-30 12:17 | W.ANESPOSTOP ---
Postoperative Evaluation Date, Time and Location Date Performed: 04/30/25 Time Performed: :25 Patient Location: PACU Vital Signs Most Recent Imported Vital Signs: Most Recent Vital Signs Temp Pulse Resp BP Pulse Ox 37.2 C 68 17 172/69 H 95 04/30/25 11:55 04/30/25 11:56 04/30/25 11:56 04/30/25 11:55 04/30/25 11:56 Pain Score Most Recent Pain Score: Most Recent Pain Score Pain Level 0 04/30/25 11:49 Assessment Mental Status: Arousable with meaningful communication Airway and Respiratory Function: Patent airway with normal (patient baseline) respiratory exam Cardiovascular Function: Hemodynamically Stable Hydration Status: Adequately Hydrated Nausea & Vomiting: No Nausea or Vomiting Pain: Pt. Denies Any Pain Peripheral Nerve Block: Patient did not receive a nerve block
[2025-04-30] MEDS: Acetaminophen 325 MG TAB 650 MG PO ×2 (17:14→22:29)
[2025-04-30] MEDS: Carbidopa 25/Levodopa 100 TAB PO (20:12)
[2025-04-30] MEDS: Atenolol 50 MG TAB 75 MG PO (20:13)
[2025-05-01 03:45] VITALS: BP 135/49; PULSE 81; RESP 16; TEMP 38.9; O2SAT 89
[2025-05-01] MEDS: Acetaminophen 500 MG TAB 1000 MG PO (04:25)
[2025-05-01 05:31] VITALS: TEMP 38.4; O2SAT 93
[2025-05-01 06:10] VITALS: TEMP 36.6
[2025-05-01 07:27] LABS: HCT 34.5 % (36.0-46.0); HGB 11.8 g/dL (11.2-15.7); MCH 31.4 pg (27.0-33.0); MCHC 34.2 % (32.0-36.0); MCV 92 fL (80-95); MPV 10.1 fL (8.0-11.0); Platelet Count 157 10^3/uL (130-400); RBC 3.76 10^6/uL (3.93-5.22); RDW 13.0 % (11.7-14.6); RDW-SD 43.7 fL; WBC 10.87 10^3/uL (4.4-10.8)
[2025-05-01 07:39] LABS: Anion Gap 8 mmol/L (3-11); BUN 31 mg/dL (9-23); CO2 23.0 mmol/L (20.0-31.0); Calcium 8.5 mg/dL (8.3-10.6); Chloride 102 mmol/L (98-107); Glucose 100 mg/dL (74-106); Magnesium 1.8 mg/dL (1.6-2.6); Potassium 4.4 mmol/L (3.5-5.1); Sodium 133 mmol/L (136-145)
[2025-05-01 08:08] VITALS: PULSE 63; RESP 19; TEMP 36.8; O2SAT 92
--- NOTE | 2025-05-01 08:41 | W.PM.DS.N ---
Date of service: 05/01/25 Time of Service: 08:42 DS: Diagnosis Discharge Diagnosis (1) Left ureteral stone: Status: Acute (2) Hydronephrosis of left kidney: Status: Acute Discharge Plan Disposition Patient Disposition: Home Condition: Good Discharge Details Admit Date/Time: 04/30/25 12:08 Admit Provider: Baldomero Whelan Attending Provider: Renata Marquis Primary Care Provider: Edwin Bonilla Hospital Course Hospital Course: Patient initially presented with left flank pain and found to have infected and obstructing left ureteral stone. Shortly after diagnosis urology took patient to the OR and placed ureteral stent. In the emergency department patient was started on ceftriaxone, but did develop a fever shortly after as well as 1 in the senior mechanical design engineer on 07/01/2024. However, patient does not have elevated white blood cell count and otherwise feels fine and is requesting discharge home. Shared decision making was a decision for patient to be discharged home with additional 7 days of p.o. cefpodoxime. Both patient and her understand return precautions that if she continues to have fevers through tomorrow 05/02/2025 that she should return to the hospital for continuation of IV antibiotic therapy. Home Meds and New Rx's Prescriptions: New cefpodoxime 200 mg tablet 200 mg PO BID Qty: 14 0RF Rx Instructions: must administer with a meal/food Continued cyanocobalamin (vitamin B-12) 1,000 mcg capsule 1,000 mcg PO DAILY cholecalciferol (vitamin D3) 75 mcg (3,000 unit) tablet 5,000 unit PO DAILY magnesium 250 mg tablet 250 mg PO DAILY acyclovir 200 mg capsule 400 mg PO TID PRN (Reason: Herpes simplex) Qty: 180 4RF atenolol 50 mg tablet 75 mg PO HS Qty: 135 4RF Rx Instructions: take one and a half tablet daily carbidopa-levodopa 25-100 mg tablet 1 - 2 tab PO HS Qty: 180 1RF Rx Instructions: NOT SENT Discharge Instructions Stand Alone Forms: Portal Information Activity:: Activity as Tolerated Equipment/Supplies:: No Equipment Needed Diet:: As Tolerated Discharge Orders Discharge Orders: Discharge Order (Routine); Ordered 05/01/25 Ordered By: Baldomero Whelan DS: Summary Time Spent with Patient providing and/or coordinating discharge services: Greater than 30 minutes Status at Discharge Functional status at discharge: independent ambulation Overall status at discharge: patient is back to baseline Mental Status: mental status grossly normal Speech and Movement: speech and movement normal Mood: congruent mood Affect: normal affect Exam Narrative Exam Narrative: Well-appearing female laying in bed in no acute distress, ANO x 4, heart regular rhythm, lungs auscultation bilaterally, abdomen soft, nontender, nondistended, small surgical incision bandaged without surrounding erythema or drainage Psych Mental Status: mental status grossly normal Speech and Movement: speech and movement normal Mood: congruent mood Affect: normal affect DS: Data Vitals/I&O Vitals and I&O: Vital Signs Temperature 98.2 F 05/01/25 08:08 Temperature Source Temporal Artery Scan 05/01/25 08:08 Pulse 63 05/01/25 08:08 Pulse 68 04/30/25 11:56 Respiratory Rate 19 05/01/25 08:08 Respiratory Effort Normal 04/30/25 12:19 Respiratory Depth Normal 04/30/25 12:19 Respiratory Pattern Normal 04/30/25 12:19 Blood Pressure 135/49 L 05/01/25 03:45 Blood Pressure Mean 77 05/01/25 03:45 Pulse Oximetry 92 05/01/25 08:08 Respiratory End-tidal CO2 39 04/30/25 11:56 Oxygen Delivery Method Room Air 05/01/25 08:08 Oxygen Flow Rate 0 05/01/25 08:08 Pain Level 0 05/01/25 03:45 Comment 3:10 final post op 04/30/25 15:13 Intake & Output 04/30/25 05/01/25 05/01/25 17:59 05:59 17:59 Intake Total 2252 / 2252 530 / 2782 Output Total 100 / 100 700 / 800 200 / 200 Balance 215 / 215 -170 / 1982 -200 / -200 Weight 190 lb Intake: IV 1550 / 1550 10 / 1560 Oral 702 / 702 520 / 1222 Output: Urine 100 / 100 700 / 800 200 / 200 Other: Urine Color Yellow Yellow Yellow Urine Appearance Cloudy Urine Odor Normal Emesis Description None Data Completed and Pending Pending Labs at Discharge: 04/30/25 04/30/25 05/01/25 05:05 06:17 06:45 WBC 9.17 10.87 H RBC 4.48 3.76 L Hgb 13.6 11.8 Hct 40.8 34.5 L MCV 91 92 MCH 30.4 31.4 MCHC 33.3 34.2 RDW 12.4 13.0 Plt Count 228 157 MPV 9.4 10.1 Immature Gran % 0.2 Neutrophils % 82.6 Lymphocytes % 10.6 Monocytes % 4.8 Eosinophils % 1.1 Basophils % 0.7 Nucleated RBC % 0.0 Absolute Neutrophils 7.58 H Absolute Lymphocytes 0.97 L Absolute Monocytes 0.44 Absolute Eosinophils 0.10 Absolute Basophils 0.06 D-Dimer 855 H VBG Lactate 0.9 Sodium 139 133 L Potassium 4.3 4.4 Chloride 103 102 Carbon Dioxide 27.0 23.0 Anion Gap 9 8 BUN 26 H 31 H Creatinine 1.7 H 2.6 H Est GFR (CKD-EPI 2020) 29.22 18.14 Glucose 142 H 100 Calcium 9.4 8.5 Magnesium 2.3 1.8 Total Bilirubin 0.70 AST 20 ALT < 7 L Alkaline Phosphatase 96 Total Protein 7.8 Albumin 4.4 Urine Color Yellow Urine Clarity Cloudy Urine pH 5.5 Ur Specific [place] 1.025 Urine Protein 100 H Urine Ketones 15 H Urine Blood Moderate H Urine Nitrite Positive H Urine Bilirubin Negative Urine Urobilinogen 0.2 Ur Leukocyte Esterase Moderate H Urine RBC 10-20 H Urine WBC >50 H Ur Epithelial Cells Few Urine Crystals Negative Urine Bacteria Few Urine Casts 0-2 Hyaline Urine Mucus Trace Ur Culture Indicated? Yes Urine Glucose 100 H Preliminary micro results at discharge 05/01/25 06:55 Blood Blood Culture - Pending 05/01/25 06:45 Blood Blood Culture - Pending 04/30/25 06:17 Urine - Reflex from Ua Urine Culture - Pending [facility] All Active Problems (Updated 04/30/25 @ 10:13 by Baldomero Whelan MD) Left ureteral stone (Acute) UTI (urinary tract infection) (Acute) Hydronephrosis of left kidney (Acute) Acute flank pain (Acute) Tendonitis of long head of biceps brachii of right shoulder (Acute) Venous insufficiency (Acute) Pre-ulcerative calluses (Acute) Onychomycosis (Acute) Nail dystrophy (Acute) Pain, foot (Acute) Corns and callosities (Acute) Left knee pain (Acute) COPD (chronic obstructive pulmonary disease) (Chronic) Obesity (Chronic) Asymptomatic menopausal state (Acute) Polyneuropathy (Acute) Statin intolerance (Acute) Elevated hemoglobin A1c (Acute) Vitamin B 12 deficiency (Acute) Pes anserinus bursitis of right knee (Acute) Bilateral lower extremity edema (Acute) Status post total knee replacement, right (Acute 10/29/19) Actinic keratosis (Acute) Babinski reflex (Acute 12/08/15) Cervical stenosis of spinal canal (Acute 01/11/16) Gastroesophageal reflux disease (Acute) Hiatal hernia (Acute) Hyperlipidemia (Acute) Idiopathic peripheral neuropathy (Acute 01/11/16) Restless legs (Acute) Smoker (Acute) Quit 6 years ago. Supraventricular tachycardia (Acute) Medical History Melanoma Type 2 diabetes mellitus with diabetic polyneuropathy, without long-term current use of insulin Nephrolithiasis Pyloric ulcer associated with Helicobacter pylori Herpes simplex type 1 infection Condyloma vulva age 21 yrs Cryo Tx Surgical History Trigger finger, right little finger S/P Release: 09/26/2022 S/P cataract extraction section 1988 Dilation and curettage 1987 post SAB Family History Mother Diabetes Personal history of malignant neoplasm Pituitary Heart disease Stroke Father Alzheimers disease Heart disease Stroke Brother Personal history of malignant neoplasm Stomach Stroke Grandfather Heart disease Grandfather Heart disease Grandmother Heart disease Other Hyperlipidemia Social History Smoking/Tobacco Use Status: Former Tobacco Use Tobacco: How many years used: 40 Smoking risk assessment performed?: Yes Alcohol Intake: current Alcohol Intake frequency: holidays/special occasions only Alcohol type: wine Drug use: Never Substance use type: does not use Caregiver/Support person: No Household members: spouse Housing: house Number of Children: 1 Communication Needs: None Do you need help understanding health information?: Never current occupation: Retail Pets and animals: No Current gender identity: decline to answer What type of physical activity do you participate in: none Seatbelt use: never Drive intox or ride w/intox p d driver: No Additional Social history: Youngest of 7 kids, though estranged from her siblings. Her father was a GP. Time Spent with Patient Time Spent with Patient: <45 minutes Time was spent: preparing to see the patient(eg.review tests), obtaining and/or reviewing separately otained hiistory, ordering medications,tests, procedures, referring, communicating with other health women's health care nurse practitioner, indepentently interpreting results, counseling the patient and care coordination
[2025-05-01] MEDS: cefTRIAXone 1 GM/50 ML BAG IVPB (08:58)
[2025-05-01] MEDS: Magnesium Oxide 400 MG TAB PO (08:59)
[2025-05-01 09:00] VITALS: BP 119/52
--- NOTE | 2025-05-01 09:20 | CMPROGNOTE_ITS ---
Date of service: 05/01/25 Time of Service: 09:21 Care Management Progress Note Progress Note Text Progress Note Text: Rachel was admitted yesterday with left flank pain and found to have an obstructing left ureteral stone. She was started on antibiotics, and was b rought to the OR for stent placement. She did develop a fever overnight x2, but did not have and elevated WBC. Rachel desired strongly to go home, and is being discharged on 7 days of oral antibiotics, and strict instructions to return to the ER if she develops a fever in the next 48 hours. Rachel was sitting up in the chair when CM met with her. Both she and her were very pleasant and easy to converse with. Rachel is in full understanding of her discharge instructions, and is very pleased to be going home. Rachel and Corby are independent in the community, and deny any needs at this t sharath. Discharge Potential Discharge Needs: PCP F/U Appt Anticipated Barriers to Discharge: None Identified Patient/Family Education Needs: Review discharge instructions, discuss Ask Me Three Transportation: Private vehicle Plan: Rachel is discharged today with no new home care services. She will f/u with her PCP and with her surgeon and continue per her plan of care. She is discharged on oral antibiotics and strict instructions to return to the ER if she develops a fever in the next 48 hours. Rachel will [place] home with her . Social Determinants of Health Screening Social Determinants of health last assessed in clinic: 05/01/25 Will the Patient Participate in the Screening?: Yes Do you worry about having a steady place to live?: no Problems where you live: no known problems In the past 12 months, have you had to go without electric, gas, oil or water in your home?: no 1. Within the past 12 months, we worried whether our food would run out before we got money to buy more.: Never true 2. Within the past 12 months, the food we bought just didn't last and we didn't have money to get more.: Never true Has lack of transportation kept you from medical appointments or from doing things needed for daily living?: no Has anyone in your life made you feel unsafe or unsupported?: choose not to answer How hard is it for you to pay for the very basics like food, housing, medical care, and heating? Would you say it is:: Not hard at all Do you want help finding or keeping work or a job?: I do not need or want help If for any reason you need help with day-to-day activities such as bathing, preparing meals, shopping, managing finances, etc., do you get the help you need ?: I don?t need any help How often do you feel lonely or isolated from those around you?: Never Do you speak a language other than [place] at home?: Yes Does the patient want assistance with any of the above?: No Health Related Social Needs Health related social needs: education (Z55.6)
== END 2025-05-01 09:40 | disposition home or self-care (01) | DRG 690 ==
LOC: ER 09:40 → SUR 11:20 → MS 12:18 → ER 05-01 09:07 → SUR 05-01 09:07 → MS 05-01 09:07
PROVIDERS: Student in an Organized Health Care Education/Training Program; Urology; Admitting Provider Family Medicine; Emergency Provider Student in an Organized Health Care Education/Training Program; PCP Family Medicine; Responsible Provider Family Medicine; Visit Provider Family Medicine
PROC: BT1FZZZ Fluoroscopy of Left Kidney, Ureter and Bladder (ICD-10-PCS; CPT 74450; principal; 2025-04-30 10:30)
DX: N13.6 Pyonephrosis (principal); I47.10 Supraventricular tachycardia, unspecified; B35.1 Tinea unguium; J44.9 Chronic obstructive pulmonary disease, unspecified; E66.9 Obesity, unspecified; E11.42 Type 2 diabetes mellitus with diabetic polyneuropathy; E53.8 Deficiency of other specified B group vitamins; Z96.651 Presence of right artificial knee joint; K21.9 Gastro-esophageal reflux disease without esophagitis; K44.9 Diaphragmatic hernia without obstruction or gangrene; E78.5 Hyperlipidemia, unspecified; G25.81 Restless legs syndrome; Z87.891 Personal history of nicotine dependence; Z87.442 Personal history of urinary calculi; I87.8 Other specified disorders of veins; R60.0 Localized edema; M48.02 Spinal stenosis, cervical region; K76.0 Fatty (change of) liver, not elsewhere classified; I25.10 Atherosclerotic heart disease of native coronary artery without angina pectoris; J43.2 Centrilobular emphysema; I70.0 Atherosclerosis of aorta; I70.208 Unspecified atherosclerosis of native arteries of extremities, other extremity; I70.1 Atherosclerosis of renal artery; Z68.28 Body mass index [BMI] 28.0-28.9, adult
CPT/HCPCS: 52332; 00123; 36415; 71275; 80048; 80053; 85027; 87040; 87077; 93005; 96361; 96365; 96375; 99222; 99285; 74174; 74420; 81003; 81015; 83605; 83735; 85025; 85379; 87086; 87186; 93010; 99223; 99238; J0131; J0696; J2003; J2405; J2704; J3010; Q9967

== ENCOUNTER → 2025-05-12 10:37 | Outpatient (BNVA) | payer MEDICARE, SELFPAY | PROVIDERS: PCP Family Medicine; Referring Provider Family Medicine; Visit Provider Urology | DX: N39.0 Urinary tract infection, site not specified (principal); N20.2 Calculus of kidney with calculus of ureter; R31.9 Hematuria, unspecified; Z96.0 Presence of urogenital implants | CPT/HCPCS: 99214; 81002 ==

== ENCOUNTER 2025-05-12 10:53 | Outpatient (REF) | payer MEDICARE, SELFPAY | END 2025-05-12 10:54 | disposition home or self-care (01) | LOC: LBN 10:53 | PROVIDERS: PCP Family Medicine; Visit Provider Urology | DX: R31.9 Hematuria, unspecified (principal); N20.1 Calculus of ureter; N39.0 Urinary tract infection, site not specified; R82.89 Other abnormal findings on cytological and histological examination of urine | CPT/HCPCS: 87086 ==

== ENCOUNTER 2025-05-18 07:39 | Day surgery (SDC) | payer MEDICARE, SELFPAY ==
[2025-05-18] VITALS (15 sets, daily range): BP systolic 103–130; BP diastolic 36–58; PULSE 45–57; RESP 13–19; TEMP 35.9–36.4; O2SAT 96–100; BMI 28.2
[2025-05-18] MEDS: Lactated Ringers 1,000 ML 80 ML IV (08:16)
--- NOTE | 2025-05-18 08:39 | W.ANESPRE ---
General Info Date of Service Date Performed: 05/18/25 Height: 5 ft 7 in Weight: 81.8 kg Body Mass Index (BMI): 28.2 Surgical Procedure: Operation Date: 05/18/25 09:10 Proposed Procedure Side Surgeon p Cystoscopy/Laser/Ureteroscopy/Stent Removal Left Sanjeev Snyder MD Meds Allergies and Home Medications Allergies Allergy/AdvReac Type Severity Reaction Status Date / Time Penicillins AdvReac Mild Other (See Verified 05/18/25 08:12 Comment) benzonatate AdvReac Unknown Ineffective Verified 05/18/25 08:12 Home Medication ?Medication ?Instructions ?Recorded acyclovir 200 mg capsule 400 mg (2 x 200 mg) PO TID PRN 03/25/19 Herpes simplex #180 tab-caps atenolol 50 mg tablet 75 mg (1.5 x 50 mg) PO HS #135 tabs 12/22/19 carbidopa 25 mg-levodopa 100 mg 1 - 2 tab (1 - 2 x 25-100 mg) PO 09/17/20 tablet HS #180 tab-caps cholecalciferol (vitamin D3) 75 5,000 unit PO DAILY 05/19/24 mcg (3,000 unit) tablet cyanocobalamin (vitamin B-12) 1,000 mcg PO DAILY 05/19/24 1,000 mcg capsule magnesium 250 mg tablet 250 mg PO DAILY 02/18/25 sulfamethoxazole 800 1 tab PO QHS #30 tabs 05/05/25 mg-trimethoprim 160 mg tablet (Bactrim DS) fluconazole 150 mg tablet 150 mg PO DAILY yeast infections 05/12/25 #3 tabs Current Visit Medications: Current Medications Generic Name Dose Route Start Last Admin Trade Name Freq PRN Reason Stop Dose Admin Ringer's Solution 1,000 mls @ 80 mls/hr 05/18/25 06:00 05/18/25 08:16 IV 06/14/25 23:59 80 mls/hr INFUSION ERIC Administration Cefazolin Sodium/Dextrose 2 gm in 50 mls @ 100 mls/hr 05/18/25 06:00 Ancef Duplex IVPB 06/14/25 23:59 PREOP ERIC Sodium Chloride 0 ml 05/18/25 06:00 Normal Saline Flush 10 Ml Syr IV 06/14/25 23:59 PRN PRN Sodium Chloride 0 ml 05/18/25 06:00 Normal Saline 10 Ml Vial IJ 06/14/25 23:59 DIRECTED PRN Sterile Water 0 ml 05/18/25 06:00 Water,Injection,Sterile 10 Ml Vial IJ 06/14/25 23:59 DIRECTED PRN PFSH Active Problems Active Problems: Problem Status Onset Code Complicated urinary tract infection Acute N39.0 Calculus of left ureter Acute N20.1 UTI (urinary tract infection) Acute N39.0 Tendonitis of long head of biceps brachii of right shoulder Acute M75.21 Venous insufficiency Acute I87.2 Pre-ulcerative calluses Acute L84 Onychomycosis Acute B35.1 Nail dystrophy Acute L60.3 Pain, foot Acute M79.673 Corns and callosities Acute L84 Left knee pain Acute M25.562 COPD (chronic obstructive pulmonary disease) Chronic J44.9 Obesity Chronic E66.9 Asymptomatic menopausal state Acute Z78.0 Polyneuropathy Acute G62.9 Statin intolerance Acute Z78.9 Elevated hemoglobin A1c Acute R73.09 Vitamin B 12 deficiency Acute E53.8 Pes anserinus bursitis of right knee Acute M70.51 Bilateral lower extremity edema Acute R60.0 Status post total knee replacement, right Acute 10/29/19 Z96.651 Actinic keratosis Acute L57.0 Babinski reflex Acute 12/08/15 R29.2 Cervical stenosis of spinal canal Acute 01/11/16 M48.02 Gastroesophageal reflux disease Acute K21.9 Hiatal hernia Acute K44.9 Hyperlipidemia Acute E78.5 Idiopathic peripheral neuropathy Acute 01/11/16 G60.9 Restless legs Acute G25.81 Smoker Acute F17.200 Supraventricular tachycardia Acute I47.1 Medical History Medical History Melanoma Type 2 diabetes mellitus with diabetic polyneuropathy, without long-term current use of insulin Nephrolithiasis Pyloric ulcer associated with Helicobacter pylori Herpes simplex type 1 infection Condyloma vulva age 21 yrs Cryo Tx Surgical History Surgical History Trigger finger, right little finger S/P Release: 09/26/2022 S/P cataract extraction section 1988 Dilation and curettage 1987 post SAB Tobacco Smoking/Tobacco Use Status: Former Tobacco Use Passive smoking exposure: Yes Alcohol Alcohol Intake: current Alcohol intake frequency: holidays/special occasions only Alcohol type: wine Substance Use Substance use: Never Substance use type: does not use Vital Signs and Lab Results Vital Signs Most Recent Vital Signs in EMR: Most Recent Vital Signs Temp Pulse Resp BP Pulse Ox 36.3 C L 49 L 17 127/42 L 97 05/18/25 08:05 05/18/25 08:05 05/18/25 08:05 05/18/25 08:05 05/18/25 08:05 Lab Results Complete Blood Count: WBC, (4.4-10.8) 10.87 10^3/uL H 05/01/25, 06:45 RBC, (3.93-5.22) 3.76 10^6/uL L 05/01/25, 06:45 Hgb, (11.2-15.7) 11.8 g/dL 05/01/25, 06:45 Hct, (36.0-46.0) 34.5 % L 05/01/25, 06:45 Plt Count, (130-400) 157 10^3/uL 05/01/25, 06:45 VBG Lactate, (<or=2.0) 0.9 mmol/L 04/30/25, 05:05 Complete Metabolic Panel: Sodium, (136-145) 133 mmol/L L 05/01/25, 06:45 Potassium, (3.5-5.1) 4.4 mmol/L 05/01/25, 06:45 Chloride, (98-107) 102 mmol/L 05/01/25, 06:45 Carbon Dioxide, (20.0-31.0) 23.0 mmol/L 05/01/25, 06:45 BUN, (9-23) 31 mg/dL H 05/01/25, 06:45 Creatinine, (0.55-1.02) 2.6 mg/dL H 05/01/25, 06:45 Est GFR (CKD-EPI 2020), (mL/min/1.73m2) 18.14 05/01/25, 06:45 Magnesium, (1.6-2.6) 1.8 mg/dL 05/01/25, 06:45 Calcium, (8.3-10.6) 8.5 mg/dL 05/01/25, 06:45 Albumin, (3.4-5.0) 4.4 g/dL 04/30/25, 05:05 Glucose, (74-106) 100 mg/dL 05/01/25, 06:45 Liver Function Panel: ALT, (10-49) < 7 U/L L 04/30/25, 05:05 AST, (<34) 20 U/L 04/30/25, 05:05 Coagulation Panel: D-Dimer, (<500) 855 ng/mlFEU H 04/30/25, 05:05 Imaging and Studies Imaging and Studies Study information below may be from another EMR and interpreted by another provider. Please see original notes in EMR for more complete details. EKG Summary: 04/30/25: Exam: Resting ECG Reason for Exam: hypertension Patient Location: E HR:57 bpm ECG Measurements Heart Rate 57 AXIS IA 80 P 60 QRSd 89 QRS 57 QT 467 T55 QTc 456 Conclusion Sinus bradycardia...rate< 60 Atrial premature complex...SV complex w/ short R-R interval no ST segment or T wave abnormalities to suggest occlusive AR Echocardiogram Summary: 05/12/20: Conclusion Normal left ventricular wall thickness and chamber size. Estimated ejection fraction is 60%. There are no segmental wall motion abnormalities Normal right ventricular size and systolic function The left atrium is mildly dilated. The right atrium is normal in size The aortic valve is trileaflet without stenosis or regurgitation Mildly thickened mitral leaflets. There is mild to moderate mitral regurgitation Tricuspid valve is structurally normal with trace regurgitation. Estimated right ventricular systolic pressure is normal at 30 mmHg The pulmonic valve is structurally normal Pulmonary Function Summary: INTERPRETATION SPIROMETRY: Spirometry shows moderately severe obstructive airways disease with no significant bronchodilator response. LUNG VOLUMES: Lung volumes show no evidence of restriction. DIFFUSION CAPACITY: Mildly reduced. AIRWAY RESISTANCE: Mildly elevated. IMPRESSION: Moderately severe obstructive airways disease with no significant bronchodilator response. Clinical correlation recommended.10/09/12: 10/2012: INTERPRETATION SPIROMETRY: Spirometry shows moderately severe obstructive airways disease with no significant bronchodilator response. LUNG VOLUMES: Lung volumes show no evidence of restriction. DIFFUSION CAPACITY: Mildly reduced. AIRWAY RESISTANCE: Mildly elevated. IMPRESSION: Moderately severe obstructive airways disease with no significant bronchodilator response. Clinical correlation recommended. Anesthesia Assessment and Plan Anesthesia History Personal History: No History of Anesthesia Complications Family History: No Family History of Anesthesia Complications Exercise Tolerance Exercise Tolerance: Metabolic Equivalents<4 Pertinent Negatives Pertinent Negatives: No Symptoms of GERD Cardiac & Pulmonary Exam Cardiac Exam: Normal S1/S2 Heart Sounds Pulmonary Exam: Clear Bilateral Breath Sounds Implantable Cardiac Device Does patient have a Pacemaker or an ICD?: No Airway Exam Known Difficult Airway: No Mallampati Class: 3 Mouth Opening: Narrow (< 3cm) Thyromental Distance: Greater than 3 cm Neck Range of Motion: Full ROM Neck Circumference: Normal Teeth Condition: Removable Dentures/Plates Upper ASA Classification ASA Score: ASA 3 Emergency Case?: No NPO Status NPO Status: NPO Clears >2 hours, Solids >8 hours Anesthesia Plan Resuscitation Status: Full Code Anesthesia Technique: General Anesthesia Airway Planned: LMA Monitors Used: Standard Monitors
--- NOTE | 2025-05-18 09:22 | W.PM.HP.N ---
Date of service: 05/18/25 Time of Service: 09:22 Assessment and Plan Assessment and plan (1) Calculus of left ureter: Status: Acute (2) Nephrolithiasis: Assessment and plan: We will plan to do ureteroscopy and holmium laser lithotripsy of her stones. With her large stone burden, it is unlikely that we will be able to address all of her stones in 1 treatment. We already have a set time scheduled for a follow-up procedure. History of Present Illness History of Present Illness Chief Complaint: Left kidney stones Narrative: This is a 70-year-old woman who presented recently with a Proteus urinary tract infection. She is found to have an obstructing left ureteral stone and a large branching stone in the upper pole calyx. We placed a ureteral stent and she was treated with antibiotics. Her urinary tract infection has cleared. She elected not to have a percutaneous nephrolithotomy in spite of her large stone burden. She is agreeable to ureteroscopy and holmium laser lithotripsy knowing that a staged procedure will be likely. She has had some discomfort with the presence of her ureteral stent. She also has some frequency and urgency but is not bothered enough to want to take any anticholinergics. Review of Systems Narrative: No fevers or chills No vision change or dysphasia No diabetes or thyroid dysfunction COPD. No shortness of breath, cough or hemoptysis No chest pain or palpitations GERD. No hepatitis, ulcers, jaundice Peripheral neuropathy. No seizures, strokes No bleeding disorders or anemia No gout PFSH All Active Problems Complicated urinary tract infection (Acute) Calculus of left ureter (Acute) UTI (urinary tract infection) (Acute) Tendonitis of long head of biceps brachii of right shoulder (Acute) Venous insufficiency (Acute) Pre-ulcerative calluses (Acute) Onychomycosis (Acute) Nail dystrophy (Acute) Pain, foot (Acute) Corns and callosities (Acute) Left knee pain (Acute) COPD (chronic obstructive pulmonary disease) (Chronic) Obesity (Chronic) Asymptomatic menopausal state (Acute) Polyneuropathy (Acute) Statin intolerance (Acute) Elevated hemoglobin A1c (Acute) Vitamin B 12 deficiency (Acute) Pes anserinus bursitis of right knee (Acute) Bilateral lower extremity edema (Acute) Status post total knee replacement, right (Acute 10/29/19) Actinic keratosis (Acute) Babinski reflex (Acute 12/08/15) Cervical stenosis of spinal canal (Acute 01/11/16) Gastroesophageal reflux disease (Acute) Hiatal hernia (Acute) Hyperlipidemia (Acute) Idiopathic peripheral neuropathy (Acute 01/11/16) Restless legs (Acute) Smoker (Acute) Quit 6 years ago. Supraventricular tachycardia (Acute) Medical History Melanoma Type 2 diabetes mellitus with diabetic polyneuropathy, without long-term current use of insulin Nephrolithiasis Pyloric ulcer associated with Helicobacter pylori Herpes simplex type 1 infection Condyloma vulva age 21 yrs Cryo Tx Surgical History Trigger finger, right little finger S/P Release: 09/26/2022 S/P cataract extraction section 1988 Dilation and curettage 1987 post SAB Family History Mother Diabetes Personal history of malignant neoplasm Pituitary Heart disease Stroke Father Alzheimers disease Heart disease Stroke Brother Personal history of malignant neoplasm Stomach Stroke Grandfather Heart disease Grandfather Heart disease Grandmother Heart disease Other Hyperlipidemia Social History Smoking/Tobacco Use Status: Former Tobacco Use Tobacco: How many years used: 40 Smoking risk assessment performed?: Yes Alcohol Intake: current Alcohol Intake frequency: holidays/special occasions only Alcohol type: wine Drug use: Never Substance use type: does not use Caregiver/Support person: No Household members: spouse Housing: house Number of Children: 1 Communication Needs: None Do you need help understanding health information?: Never current occupation: Retail Pets and animals: No Current gender identity: decline to answer What type of physical activity do you participate in: none Seatbelt use: never Drive intox or ride w/intox car pick up driver: No Additional Social history: Youngest of 7 kids, though estranged from her siblings. Her father was a GP. Meds Allergies and Home Medications Allergies Allergy/AdvReac Type Severity Reaction Status Date / Time Penicillins AdvReac Mild Other (See Verified 05/18/25 08:12 Comment) benzonatate AdvReac Unknown Ineffective Verified 05/18/25 08:12 Home Medications ?Medication ?Instructions ?Recorded ?Confirmed ?Type acyclovir 200 mg capsule 400 mg (2 x 200 mg) PO TID PRN 03/25/19 05/18/25 Rx Herpes simplex #180 tab-caps atenolol 50 mg tablet 75 mg (1.5 x 50 mg) PO HS #135 tabs 12/22/19 05/18/25 Rx carbidopa 25 mg-levodopa 100 mg 1 - 2 tab (1 - 2 x 25-100 mg) PO 09/17/20 05/18/25 Rx tablet HS #180 tab-caps cholecalciferol (vitamin D3) 75 5,000 unit PO DAILY 05/19/24 05/18/25 History mcg (3,000 unit) tablet cyanocobalamin (vitamin B-12) 1,000 mcg PO DAILY 05/19/24 05/18/25 History 1,000 mcg capsule magnesium 250 mg tablet 250 mg PO DAILY 02/18/25 05/18/25 History sulfamethoxazole 800 1 tab PO QHS #30 tabs 05/05/25 05/18/25 Rx mg-trimethoprim 160 mg tablet (Bactrim DS) fluconazole 150 mg tablet 150 mg PO DAILY yeast infections 05/12/25 05/18/25 Rx #3 tabs Exam Const General: cooperative Neck Neck: supple Resp Effort & Inspection: normal respiratory effort Auscultation: clear to auscultation bilaterally Cardio Rate: regular rate Rhythm: regular rhythm GI Palpation: soft and no masses Neuro General: patient alert, patient awake and patient oriented x3 Results Last Vital Signs Temp 36.3 C L 05/18/25 08:05 Pulse 49 L 05/18/25 08:05 Resp 17 05/18/25 08:05 BP 127/42 L 05/18/25 08:05 Pulse Ox 97 05/18/25 08:05 VTE Prohylaxis Risk Level: Low Risk Contraindications: None Prophylaxis: Mechanical Time Spent Time spent with Patient: <40 minutes Time was spent: other
[2025-05-18] MEDS: ceFAZolin 2 GM/50 ML BAG IVPB (09:43)
[2025-05-18] MEDS: Lidocaine 2% Jelly 11 ML SYR (10:11)
--- NOTE | 2025-05-18 10:57 | DI.RAD_ITS ---
Exam(s) XR RETROGRADE IN OR EXAM: XR RETROGRADE IN OR CLINICAL HISTORY: Calculus of left ureter. TECHNIQUE: Fluoroscopy was provided for the referring physician for guidance with performing retrograde procedure. COMPARISON: XA XR RETROGRADE IN OR from 04/30/[address] THORAX ABD/PEL CTA from 04/30/2025 FINDINGS: Please see procedure note for details. Fluoro time: 75.7 seconds RADIATION DOSE DELIVERED: Ka,r=18.4 mGy
--- NOTE | 2025-05-18 11:00 | W.PM.DSUDISC ---
Date of service: 05/18/25 Discharge Plan Disposition Patient Disposition: Home Condition: Stable Discharge Details Reason For Visit: ureteroscopy Attending Provider: Sanjeev Snyder Primary Care Provider: Edwin Bonilla Home Meds and New Rx's Prescriptions: No Action cyanocobalamin (vitamin B-12) 1,000 mcg capsule 1,000 mcg PO DAILY cholecalciferol (vitamin D3) 75 mcg (3,000 unit) tablet 5,000 unit PO DAILY magnesium 250 mg tablet 250 mg PO DAILY fluconazole 150 mg tablet 150 mg PO DAILY Qty: 3 0RF acyclovir 200 mg capsule 400 mg PO TID PRN (Reason: Herpes simplex) Qty: 180 4RF atenolol 50 mg tablet 75 mg PO HS Qty: 135 4RF Rx Instructions: take one and a half tablet daily carbidopa-levodopa 25-100 mg tablet 1 - 2 tab PO HS Qty: 180 1RF Rx Instructions: NOT SENT sulfamethoxazole-trimethoprim [Bactrim DS] 800-160 mg tablet 1 tab PO QHS Qty: 30 0RF Rx Instructions: start after completing cefpodoxime Discharge Instructions Additional Instructions: No need to strain your urine My office will contact you to arrange for a follow-up procedure. We will remove your stent and run a scope back up to your kidney to make sure all the stones were removed today. Please continue with your preventative antibiotic until the next procedure is completed. Stand Alone Forms: Anesthesia Discharge Inst., Anes.Nerve Block Instructions, [facility] Cysto, Portal Information Referrals: Sanjeev Snyder MD [ [facility] STAFF PHYSICIAN, Urology] - 05/28/25 11:30 am Activity:: Activity as Tolerated Shower/Bathe:: 24 hours Diet:: As Tolerated Discharge Orders Discharge Orders: Discharge Order (Routine); Ordered 05/18/25 Ordered By: Sanjeev Snyder DS: Diagnosis Discharge Diagnosis (1) Calculus of left ureter: Status: Acute (2) Nephrolithiasis:
--- NOTE | 2025-05-18 11:04 | W.PM.OP ---
Operative Note Operative Note PRE-OP DIAGNOSIS: left ureteral and renal stones POST-OP DIAGNOSIS: same PROCEDURE: cystoscopy, removal of the left ureteral stent, left retrograde pyelogram, left flexible ureteroscopy with holmium laser lithotripsy, extraction of stone fragments, insert left ureteral stones SURGEON: Sanjeev Snyder ANESTHESIA TYPE: Local By Surgeon and General LMA/ETT Refer to Anesthesia Record ESTIMATED BLOOD LOSS: 5 PATHOLOGY: other (Stones for chemical analysis) COMPLICATIONS: None Patient was transported to: PACU Patient's condition: stable Implants: 6 Guatemalan by 22 to 30 cm left ureteral stent Indications: This is a 70-year-old woman who presented with an obstructing left ureteral stone, a nonobstructing left renal stone and a urinary tract infection. She was initially treated with a stent placement and antibiotics. Her urinary tract infection has cleared and she presents now for ureteroscopy and holmium laser lithotripsy of her stones. Findings: Multiple large stones in the left upper ureter and calyces Procedure Description: The patient was brought to the operating room on 05/18/2025. She was given a dose of IV antibiotics. After successful induction of general anesthesia, she was placed in the dorsal lithotomy position. Her genitalia was prepped and draped. 2% Xylocaine jelly was instilled into the urethra to act as a local anesthetic. A 22 [place]alan rigid cystoscope was passed through the urethra into the bladder. The bladder was inspected with a 30 degree lens. The stent could be seen protruding from the left ureteral orifice. The stent was grasped with alligator forceps and brought out to the level of the urethral meatus. A guidewire was then passed through the lumen of the stent and the stent was removed. A dual-lumen catheter was then advanced up over the guidewire. A retrograde pyelogram was performed by injecting Omnipaque through the second lumen of the dual-lumen catheter. We outlined multiple filling defects in the upper ureter and collecting systems. We then passed a second wire through the dual-lumen catheter and removed the catheter. We chose one of the wires as a working wire and the other as a safety wire. I passed a ureteral access sheath over the working wire leaving the safety wire in place. I then passed the flexible ureteroscope through the lumen of the ureteral access sheath. We visualized multiple stones in the lower pole calyces and upper pole calyces. The stones were treated with 272 ?m holmium laser fiber. The stone fragmented very easily. Stone fragments were grasped and a ZeroTip stone basket and removed. Each of the stone fragments was sent to the laboratory for chemical analysis. At the completion of the procedure, there is still were multiple fragments up in the kidney but they were quite small. We elected to place a ureteral stent and arrange for a return trip to the operating room after a week or so. We will pass the flexible ureteroscope back up to ensure that all large stone fragments have been addressed. We removed the access sheath and ureteroscope and passed a 6 [place]alan variable length stent over the safety wire. The proximal end of the stent was curled in the upper pole calyx and the distal end was curled within the bladder. The positioning of the stent was confirmed both fluoroscopically and cystoscopically. The patient tolerated this procedure well with no complications. Date of Procedure: 05/18/25
[2025-05-18] MEDS: Omnipaque 300 MG/ML 50 ML BTL (11:08)
[2025-05-18] MEDS: Phenazopyridine 200 MG TAB PO (11:50)
--- NOTE | 2025-05-18 12:58 | W.ANESPOSTOP ---
Postoperative Evaluation Date, Time and Location Date Performed: 05/18/25 Time Performed: 12:59 Patient Location: Day Surgery Unit Vital Signs Most Recent Imported Vital Signs: Most Recent Vital Signs Temp Pulse Resp BP Pulse Ox 35.9 C L 45 L 16 130/38 L 96 05/18/25 12:13 05/18/25 12:13 05/18/25 12:13 05/18/25 12:13 05/18/25 12:13 Pain Score Most Recent Pain Score: Most Recent Pain Score Pain Level 0 05/18/25 12:13 Assessment Mental Status: Awake (Alert & Oriented to Patient Baseline) Airway and Respiratory Function: Patent airway with normal (patient baseline) respiratory exam Cardiovascular Function: Hemodynamically Stable Hydration Status: Adequately Hydrated Nausea & Vomiting: No Nausea or Vomiting Pain: Pt. Denies Any Pain Peripheral Nerve Block: Patient did not receive a nerve block
== END 2025-05-18 12:59 | disposition home or self-care (01) ==
PROVIDERS: PCP Family Medicine; Visit Provider Urology
PROC: (CPT 52356; principal; 2025-05-18 09:00)
DX: N20.1 Calculus of ureter (principal); N20.0 Calculus of kidney; I87.2 Venous insufficiency (chronic) (peripheral); J44.9 Chronic obstructive pulmonary disease, unspecified; E11.42 Type 2 diabetes mellitus with diabetic polyneuropathy; E78.5 Hyperlipidemia, unspecified; F17.210 Nicotine dependence, cigarettes, uncomplicated
CPT/HCPCS: 52356; 74420; 82365; J0131; J0690; J1100; J2003; J2405; J2704; Q9967

== ENCOUNTER 2025-05-28 07:53 | Day surgery (SDC) | payer MEDICARE, SELFPAY ==
[2025-05-28] VITALS (14 sets, daily range): BP systolic 98–133; BP diastolic 43–63; PULSE 52–64; RESP 13–25; TEMP 36.2–36.3; O2SAT 93–98; BMI 28.3
--- NOTE | 2025-05-28 08:23 | W.PM.HP.N ---
Date of service: 05/28/25 Time of Service: 08:23 Assessment and Plan Assessment and plan (1) Calculus of left ureter: Status: Acute (2) Nephrolithiasis: Assessment and plan: We will remove her stent and pass the ureteroscope back up to ensure that all stone fragments have been addressed. History of Present Illness History of Present Illness Chief Complaint: Kidney stones Narrative: This is a 70-year-old woman who presented with a left ureteral stone and concerns for a urinary tract infection. She first had a ureteral stent placed and was treated with antibiotics. She then had ureteroscopy and holmium laser lithotripsy. We were not completely convinced that all stone fragments had been addressed. She presents now for stent removal and repeat ureteroscopy. We will be prepared to use the holmium laser on any large stone fragments if they are encountered. Review of Systems Narrative: No fevers or chills No vision change or dysphasia No diabetes or thyroid COPD. No hemoptysis No chest pain or palpitations No nausea, vomiting, hepatitis, ulcers, jaundice No seizures, strokes or peripheral neuropathy No bleeding disorders or anemia No gout PFSH All Active Problems Complicated urinary tract infection (Acute) Calculus of left ureter (Acute) UTI (urinary tract infection) (Acute) Tendonitis of long head of biceps brachii of right shoulder (Acute) Venous insufficiency (Acute) Pre-ulcerative calluses (Acute) Onychomycosis (Acute) Nail dystrophy (Acute) Pain, foot (Acute) Corns and callosities (Acute) Left knee pain (Acute) COPD (chronic obstructive pulmonary disease) (Chronic) Obesity (Chronic) Asymptomatic menopausal state (Acute) Polyneuropathy (Acute) Statin intolerance (Acute) Elevated hemoglobin A1c (Acute) Vitamin B 12 deficiency (Acute) Pes anserinus bursitis of right knee (Acute) Bilateral lower extremity edema (Acute) Status post total knee replacement, right (Acute 10/29/19) Actinic keratosis (Acute) Babinski reflex (Acute 12/08/15) Cervical stenosis of spinal canal (Acute 01/11/16) Gastroesophageal reflux disease (Acute) Hiatal hernia (Acute) Hyperlipidemia (Acute) Idiopathic peripheral neuropathy (Acute 01/11/16) Restless legs (Acute) Smoker (Acute) Quit 6 years ago. Supraventricular tachycardia (Acute) Medical History Melanoma Type 2 diabetes mellitus with diabetic polyneuropathy, without long-term current use of insulin Nephrolithiasis Pyloric ulcer associated with Helicobacter pylori Herpes simplex type 1 infection Condyloma vulva age 21 yrs Cryo Tx Surgical History Trigger finger, right little finger S/P Release: 09/26/2022 S/P cataract extraction section 1988 Dilation and curettage 1987 post SAB Family History Mother Diabetes Personal history of malignant neoplasm Pituitary Heart disease Stroke Father Alzheimers disease Heart disease Stroke Brother Personal history of malignant neoplasm Stomach Stroke Grandfather Heart disease Grandfather Heart disease Grandmother Heart disease Other Hyperlipidemia Social History Smoking/Tobacco Use Status: Former Tobacco Use Tobacco: How many years used: 40 Smoking risk assessment performed?: Yes Alcohol Intake: current Alcohol Intake frequency: holidays/special occasions only Alcohol type: wine Drug use: Never Substance use type: does not use Caregiver/Support person: No Household members: spouse Housing: house Number of Children: 1 Communication Needs: None Do you need help understanding health information?: Never current occupation: Retail Pets and animals: No Current gender identity: decline to answer What type of physical activity do you participate in: none Seatbelt use: never Drive intox or ride w/intox delivery driver/customer service: No Additional Social history: Youngest of 7 kids, though estranged from her siblings. Her father was a GP. Meds Allergies and Home Medications Allergies Allergy/AdvReac Type Severity Reaction Status Date / Time lisinopril AdvReac Intermediate cough Verified 05/28/25 08:18 Penicillins AdvReac Mild Other (See Verified 05/28/25 08:18 Comment) benzonatate AdvReac Unknown Ineffective Verified 05/28/25 08:18 Home Medications ?Medication ?Instructions ?Recorded ?Confirmed ?Type acyclovir 200 mg capsule 400 mg (2 x 200 mg) PO TID PRN 03/25/19 05/27/25 Rx Herpes simplex #180 tab-caps atenolol 50 mg tablet 75 mg (1.5 x 50 mg) PO HS #135 tabs 12/22/19 05/28/25 Rx carbidopa 25 mg-levodopa 100 mg 1 - 2 tab (1 - 2 x 25-100 mg) PO 09/17/20 05/28/25 Rx tablet HS #180 tab-caps cholecalciferol (vitamin D3) 75 5,000 unit PO DAILY 05/19/24 05/27/25 History mcg (3,000 unit) tablet cyanocobalamin (vitamin B-12) 1,000 mcg PO DAILY 05/19/24 05/27/25 History 1,000 mcg capsule magnesium 250 mg tablet 250 mg PO DAILY 02/18/25 05/28/25 History sulfamethoxazole 800 1 tab PO QHS #30 tabs 05/05/25 05/28/25 Rx mg-trimethoprim 160 mg tablet (Bactrim DS) fluconazole 150 mg tablet 150 mg PO DAILY yeast infections 05/12/25 05/27/25 Rx #3 tabs Exam Const General: cooperative Resp Effort & Inspection: normal respiratory effort Auscultation: clear to auscultation bilaterally Cardio Rate: regular rate Rhythm: regular rhythm GI Palpation: soft and no masses Neuro General: patient alert, patient awake and patient oriented x3 Results Last Vital Signs Temp 36.2 C L 05/28/25 08:20 Pulse 52 L 05/28/25 08:20 Resp 18 05/28/25 08:20 BP 119/44 L 05/28/25 08:20 Pulse Ox 98 05/28/25 08:20 VTE Prohylaxis Risk Level: Low Risk Contraindications: None Prophylaxis: Mechanical Time Spent Time spent with Patient: <40 minutes Time was spent: other
[2025-05-28] MEDS: Lactated Ringers 1,000 ML 80 ML IV (08:27)
--- NOTE | 2025-05-28 09:08 | W.ANESPRE ---
General Info Date of Service Date Performed: 05/28/25 Height: 5 ft 7 in Weight: 82.1 kg Body Mass Index (BMI): 28.3 Surgical Procedure: Operation Date: 05/28/25 09:40 Proposed Procedure Side Surgeon p Cystoscopy/Remove stent/Laser/Retrograde/Ureteroscopy/stone fragment extraction Left Sanjeev Snyder MD Meds Allergies and Home Medications Allergies Allergy/AdvReac Type Severity Reaction Status Date / Time lisinopril AdvReac Intermediate cough Verified 05/28/25 08:18 Penicillins AdvReac Mild Other (See Verified 05/28/25 08:18 Comment) benzonatate AdvReac Unknown Ineffective Verified 05/28/25 08:18 Home Medication ?Medication ?Instructions ?Recorded acyclovir 200 mg capsule 400 mg (2 x 200 mg) PO TID PRN 03/25/19 Herpes simplex #180 tab-caps atenolol 50 mg tablet 75 mg (1.5 x 50 mg) PO HS #135 tabs 12/22/19 carbidopa 25 mg-levodopa 100 mg 1 - 2 tab (1 - 2 x 25-100 mg) PO 09/17/20 tablet HS #180 tab-caps cholecalciferol (vitamin D3) 75 5,000 unit PO DAILY 05/19/24 mcg (3,000 unit) tablet cyanocobalamin (vitamin B-12) 1,000 mcg PO DAILY 05/19/24 1,000 mcg capsule magnesium 250 mg tablet 250 mg PO DAILY 02/18/25 sulfamethoxazole 800 1 tab PO QHS #30 tabs 05/05/25 mg-trimethoprim 160 mg tablet (Bactrim DS) fluconazole 150 mg tablet 150 mg PO DAILY yeast infections 05/12/25 #3 tabs Current Visit Medications: Current Medications Generic Name Dose Route Start Last Admin Trade Name Freq PRN Reason Stop Dose Admin Ringer's Solution 1,000 mls @ 80 mls/hr 05/28/25 06:00 05/28/25 08:27 IV 05/28/25 23:59 80 mls/hr INFUSION ERIC Administration Cefazolin Sodium/Dextrose 2 gm in 50 mls @ 100 mls/hr 05/28/25 06:00 Ancef Duplex IVPB 05/28/25 23:59 PREOP ERIC Sodium Chloride 0 ml 05/28/25 06:00 Normal Saline Flush 10 Ml Syr IV 05/28/25 23:59 PRN PRN Sodium Chloride 0 ml 05/28/25 06:00 Normal Saline 10 Ml Vial IJ 05/28/25 23:59 DIRECTED PRN Sterile Water 0 ml 05/28/25 06:00 Water,Injection,Sterile 10 Ml Vial IJ 05/28/25 23:59 DIRECTED PRN PFSH Active Problems Active Problems: Problem Status Onset Code Complicated urinary tract infection Acute N39.0 Calculus of left ureter Acute N20.1 UTI (urinary tract infection) Acute N39.0 Tendonitis of long head of biceps brachii of right shoulder Acute M75.21 Venous insufficiency Acute I87.2 Pre-ulcerative calluses Acute L84 Onychomycosis Acute B35.1 Nail dystrophy Acute L60.3 Pain, foot Acute M79.673 Corns and callosities Acute L84 Left knee pain Acute M25.562 COPD (chronic obstructive pulmonary disease) Chronic J44.9 Obesity Chronic E66.9 Asymptomatic menopausal state Acute Z78.0 Polyneuropathy Acute G62.9 Statin intolerance Acute Z78.9 Elevated hemoglobin A1c Acute R73.09 Vitamin B 12 deficiency Acute E53.8 Pes anserinus bursitis of right knee Acute M70.51 Bilateral lower extremity edema Acute R60.0 Status post total knee replacement, right Acute 10/29/19 Z96.651 Actinic keratosis Acute L57.0 Babinski reflex Acute 12/08/15 R29.2 Cervical stenosis of spinal canal Acute 01/11/16 M48.02 Gastroesophageal reflux disease Acute K21.9 Hiatal hernia Acute K44.9 Hyperlipidemia Acute E78.5 Idiopathic peripheral neuropathy Acute 01/11/16 G60.9 Restless legs Acute G25.81 Smoker Acute F17.200 Supraventricular tachycardia Acute I47.1 Medical History Medical History Melanoma Type 2 diabetes mellitus with diabetic polyneuropathy, without long-term current use of insulin Nephrolithiasis Pyloric ulcer associated with Helicobacter pylori Herpes simplex type 1 infection Condyloma vulva age 21 yrs Cryo Tx Surgical History Surgical History Trigger finger, right little finger S/P Release: 09/26/2022 S/P cataract extraction section 1989 Dilation and curettage 1988 post SAB Tobacco Smoking/Tobacco Use Status: Former Tobacco Use Passive smoking exposure: Yes Alcohol Alcohol Intake: current Alcohol intake frequency: holidays/special occasions only Alcohol type: wine Substance Use Substance use: Never Substance use type: does not use Vital Signs and Lab Results Vital Signs Most Recent Vital Signs in EMR: Most Recent Vital Signs Temp Pulse Resp BP Pulse Ox 36.2 C L 52 L 18 119/44 L 98 05/28/25 08:20 05/28/25 08:20 05/28/25 08:20 05/28/25 08:20 05/28/25 08:20 Lab Results Complete Blood Count: WBC, (4.4-10.8) 10.87 10^3/uL H 05/01/25, 06:45 RBC, (3.93-5.22) 3.76 10^6/uL L 05/01/25, 06:45 Hgb, (11.2-15.7) 11.8 g/dL 05/01/25, 06:45 Hct, (36.0-46.0) 34.5 % L 05/01/25, 06:45 Plt Count, (130-400) 157 10^3/uL 05/01/25, 06:45 VBG Lactate, (<or=2.0) 0.9 mmol/L 04/30/25, 05:05 Complete Metabolic Panel: Sodium, (136-145) 133 mmol/L L 05/01/25, 06:45 Potassium, (3.5-5.1) 4.4 mmol/L 05/01/25, 06:45 Chloride, (98-107) 102 mmol/L 05/01/25, 06:45 Carbon Dioxide, (20.0-31.0) 23.0 mmol/L 05/01/25, 06:45 BUN, (9-23) 31 mg/dL H 05/01/25, 06:45 Creatinine, (0.55-1.02) 2.6 mg/dL H 05/01/25, 06:45 Est GFR (CKD-EPI 2020), (mL/min/1.73m2) 18.14 05/01/25, 06:45 Magnesium, (1.6-2.6) 1.8 mg/dL 05/01/25, 06:45 Calcium, (8.3-10.6) 8.5 mg/dL 05/01/25, 06:45 Albumin, (3.4-5.0) 4.4 g/dL 04/30/25, 05:05 Glucose, (74-106) 100 mg/dL 05/01/25, 06:45 Liver Function Panel: ALT, (10-49) < 7 U/L L 04/30/25, 05:05 AST, (<34) 20 U/L 04/30/25, 05:05 Coagulation Panel: D-Dimer, (<500) 855 ng/mlFEU H 04/30/25, 05:05 Imaging and Studies Imaging and Studies Study information below may be from another EMR and interpreted by another provider. Please see original notes in EMR for more complete details. EKG Summary: 04/30/25: Exam: Resting ECG Reason for Exam: hypertension Patient Location: E HR:57 bpm ECG Measurements Heart Rate 57 AXIS OH 80 P 60 QRSd 89 QRS 57 QT 467 T55 QTc 456 Conclusion Sinus bradycardia...rate< 60 Atrial premature complex...SV complex w/ short R-R interval no ST segment or T wave abnormalities to suggest occlusive SC Echocardiogram Summary: 05/12/20: Conclusion Normal left ventricular wall thickness and chamber size. Estimated ejection fraction is 60%. There are no segmental wall motion abnormalities Normal right ventricular size and systolic function The left atrium is mildly dilated. The right atrium is normal in size The aortic valve is trileaflet without stenosis or regurgitation Mildly thickened mitral leaflets. There is mild to moderate mitral regurgitation Tricuspid valve is structurally normal with trace regurgitation. Estimated right ventricular systolic pressure is normal at 30 mmHg The pulmonic valve is structurally normal Pulmonary Function Summary: INTERPRETATION SPIROMETRY: Spirometry shows moderately severe obstructive airways disease with no significant bronchodilator response. LUNG VOLUMES: Lung volumes show no evidence of restriction. DIFFUSION CAPACITY: Mildly reduced. AIRWAY RESISTANCE: Mildly elevated. IMPRESSION: Moderately severe obstructive airways disease with no significant bronchodilator response. Clinical correlation recommended.10/09/12: 10/2012: INTERPRETATION SPIROMETRY: Spirometry shows moderately severe obstructive airways disease with no significant bronchodilator response. LUNG VOLUMES: Lung volumes show no evidence of restriction. DIFFUSION CAPACITY: Mildly reduced. AIRWAY RESISTANCE: Mildly elevated. IMPRESSION: Moderately severe obstructive airways disease with no significant bronchodilator response. Clinical correlation recommended. Anesthesia Assessment and Plan Anesthesia History Personal History: No History of Anesthesia Complications Family History: No Family History of Anesthesia Complications Exercise Tolerance Exercise Tolerance: Metabolic Equivalents<4 Pertinent Negatives Pertinent Negatives: No Symptoms of GERD Cardiac & Pulmonary Exam Cardiac Exam: Normal S1/S2 Heart Sounds Pulmonary Exam: Clear Bilateral Breath Sounds Implantable Cardiac Device Does patient have a Pacemaker or an ICD?: No Airway Exam Known Difficult Airway: No Mallampati Class: 3 Mouth Opening: Narrow (< 3cm) Thyromental Distance: Greater than 3 cm Neck Range of Motion: Full ROM Neck Circumference: Normal Teeth Condition: Removable Dentures/Plates Upper ASA Classification ASA Score: ASA 3 Emergency Case?: No NPO Status NPO Status: NPO Clears >2 hours, Solids >8 hours Anesthesia Plan Resuscitation Status: Full Code Anesthesia Technique: General Anesthesia Airway Planned: LMA Monitors Used: Standard Monitors
--- NOTE | 2025-05-28 09:15 | DI.RAD_ITS ---
Exam(s) XR RETROGRADE IN OR EXAM: XR RETROGRADE IN OR CLINICAL HISTORY: left ureteral and renal stones TECHNIQUE: 2D and realtime digital imaging was performed. CONTRAST MATERIAL: Refer to procedure report. COMPARISON: CT CT THORAX ABD/PEL CTA from 04/30/2025 FINDINGS: Fluoroscopy was provided for Dr. Snyder during the performance of a retrograde evaluation of the renal collecting system. Please refer to the procedure report for complete details. Ka,r=1.3 mGy IMPRESSION: RADIATION DOSE DELIVERED: 0.0 0.0 0
[2025-05-28] MEDS: ceFAZolin 2 GM/50 ML BAG IVPB (09:49)
[2025-05-28] MEDS: Lidocaine 2% Jelly 6 ML SYR (10:07)
[2025-05-28] MEDS: Omnipaque 300 MG/ML 50 ML BTL (10:25)
--- NOTE | 2025-05-28 10:27 | W.PM.DSUDISC ---
Date of service: 05/28/25 Discharge Plan Disposition Patient Disposition: Home Condition: Stable Discharge Details Reason For Visit: ureteroscopy and stone removal Attending Provider: Sanjeev Snyder Primary Care Provider: Edwin Bonilla Recommendations for Follow Up Recommended tests to be ordered by follow up provider: renal ultrasound in 8 to 12 weeks Home Meds and New Rx's Prescriptions: No Action cyanocobalamin (vitamin B-12) 1,000 mcg capsule 1,000 mcg PO DAILY cholecalciferol (vitamin D3) 75 mcg (3,000 unit) tablet 5,000 unit PO DAILY magnesium 250 mg tablet 250 mg PO DAILY fluconazole 150 mg tablet 150 mg PO DAILY Qty: 3 0RF acyclovir 200 mg capsule 400 mg PO TID PRN (Reason: Herpes simplex) Qty: 180 4RF atenolol 50 mg tablet 75 mg PO HS Qty: 135 4RF Rx Instructions: take one and a half tablet daily carbidopa-levodopa 25-100 mg tablet 1 - 2 tab PO HS Qty: 180 1RF Rx Instructions: NOT SENT sulfamethoxazole-trimethoprim [Bactrim DS] 800-160 mg tablet 1 tab PO QHS Qty: 30 0RF Rx Instructions: start after completing cefpodoxime Discharge Instructions Additional Instructions: no need to strain urine followup in 8 to 12 weeks with a renal ultrasound prior to the visit Stand Alone Forms: Portal Information Activity:: Activity as Tolerated Shower/Bathe:: 24 hours Diet:: As Tolerated Discharge Orders Discharge Orders: Discharge Order (Routine); Ordered 05/28/25 Ordered By: Sanjeev Snyder DS: Diagnosis Discharge Diagnosis (1) Calculus of left ureter: Status: Acute (2) Nephrolithiasis:
--- NOTE | 2025-05-28 10:29 | W.PM.OP ---
Operative Note Operative Note PRE-OP DIAGNOSIS: left kidney stones POST-OP DIAGNOSIS: same PROCEDURE: cystoscopy, remove left ureteral stent, left retrograde pyelogram, left ureteroscopy and stone fragment extraction SURGEON: Sanjeev Snyder ANESTHESIA TYPE: Local By Surgeon and General LMA/ETT Refer to Anesthesia Record ESTIMATED BLOOD LOSS: 5 PATHOLOGY: other (stone for chemical analysis) COMPLICATIONS: None Implants: none Indications: This is a 70-year-old woman who initially presented with a Proteus urinary tract infection and an obstructing left ureteral stone. She was treated with placement of a ureteral stent and antibiotics. She then returned for ureteroscopy and holmium laser lithotripsy of her stones. We were able to fragment the stones but we were not certain that all stone fragments had been removed. We placed a ureteral stent. She returns now for removal of the stent and extraction of any remaining large stone fragments. Findings: Multiple small stone fragments in the lower pole calyx Larger stone fragment in the upper pole calyx Procedure Description: The patient was given IV antibiotics and brought to the operating room on 05/28/2025. After successful induction of general anesthesia, she was placed in the dorsal lithotomy position. Her genitalia was prepped and draped. 2% Xylocaine jelly was instilled into the urethra. A 22 Croatian rigid cystoscope was passed through the urethra into the bladder. The bladder was inspected with the 30 degree lens. A stent could be seen protruding from the left ureteral orifice. The stent was grasped with alligator forceps and brought to the level of the urethral meatus. We then passed a guidewire through the lumen of the stent and remove the stent. We passed a dual-lumen catheter over the wire and positioned the catheter with the tip in the proximal ureter. I injected Omnipaque through the second port of the dual-lumen catheter in order to outline the calyces. We then passed a second wire and chose one of the wires as a working wire and the other is a safety wire. I passed a ureteral access sheath over the working wire leaving the safety wire in place. We passed the flexible ureteroscope through the lumen of the access sheath and inspected each of the calyces. In the lower pole calyces, multiple small stone fragments were identified. We did not believe any of these fragments required basket extraction. In the upper pole calyx, there were multiple small stone fragments with 1 larger fragment. We were able to grasp the larger fragment in a ZeroTip stone basket and extracted. The stone fragment was sent to the laboratory for chemical analysis. We then reintroduced the ureteroscope and withdrew the scope and access sheath down the ureter. No stone fragments were seen within the ureter. We elected not to replace the ureteral stent at that time. The patient tolerated this procedure well with no complications. She was taken to the recovery room in stable condition. Date of Procedure: 05/28/25
[2025-05-28] MEDS: Phenazopyridine 200 MG TAB PO (11:26)
--- NOTE | 2025-05-28 11:43 | W.ANESPOSTOP ---
Postoperative Evaluation Date, Time and Location Date Performed: 05/28/25 Time Performed: 11:15 Patient Location: Day Surgery Unit Vital Signs Most Recent Imported Vital Signs: Most Recent Vital Signs Temp Pulse Resp BP Pulse Ox 36.2 C L 52 L 18 98/58 L 93 05/28/25 11:29 05/28/25 11:29 05/28/25 11:29 05/28/25 11:29 05/28/25 11:29 Pain Score Most Recent Pain Score: Most Recent Pain Score Pain Level 0 05/28/25 11:29 Assessment Mental Status: Awake (Alert & Oriented to Patient Baseline) Airway and Respiratory Function: Patent airway with normal (patient baseline) respiratory exam Cardiovascular Function: Hemodynamically Stable Hydration Status: Adequately Hydrated Nausea & Vomiting: No Nausea or Vomiting Pain: Pt. Denies Any Pain Peripheral Nerve Block: Patient did not receive a nerve block
== END 2025-05-28 11:40 | disposition home or self-care (01) ==
PROVIDERS: PCP Family Medicine; Visit Provider Urology
PROC: (CPT 52352; principal; 2025-05-28 09:30)
DX: N20.0 Calculus of kidney (principal); Z87.440 Personal history of urinary (tract) infections; Z87.442 Personal history of urinary calculi; J44.9 Chronic obstructive pulmonary disease, unspecified; E11.42 Type 2 diabetes mellitus with diabetic polyneuropathy
CPT/HCPCS: 52352; 74420; 82365; J0131; J0690; J1100; J2003; J2405; J2704; Q9967